=== PATIENT | male | born 1960 | race African-American/Black ===

== ENCOUNTER 2022-04-05 16:50 | Inpatient (IN) | payer OTHER ==
[2022-04-05 17:21] LABS: #Eosinphils 0.2 thou/uL (0.0-0.7); #Lymphocytes 0.5 thou/uL (1.20-3.40); #Monocytes 0.5 thou/uL (0.11-0.59); #Neutrophils 2.5 thou/uL (1.40-6.50); %Basophils 0.4 % (0.0-1.0); %Eosinophils 6.1 % (0.0-10.0); %Lymphocytes 12.5 % (21.0-51.0); %Monocytes 12.4 % (0.0-10.0); %Neutrophils 68.5 % (42.0-75.0); Hemoglobin 13.9 g/dL (14.0-18.0); Mean Corpuscular HGB CONC 32.2 g/dL (32.0-36.0); Mean Corpuscular Volume 99.5 fL (78.0-98.0); Mean Platelet Volume 7.7 fL (7.4-10.4); Platelet Count 156 thou/uL (130-400); RBC Distribution Width 12.8 % (11.5-14.5); Red Blood Cell (RBC) Count 4.35 mill/uL (4.70-6.10); White Blood Cell (WBC) Count 3.6 thou/uL (4.8-10.8)
[2022-04-05 17:29] LABS: PTT 34.5 sec (22.9-36.1); Prothrombin Time 13.7 sec (12.0-14.7)
[2022-04-05 18:00] LABS: ALT (SGPT) 13 U/L (8-55); AST (SGOT) 20 U/L (5-34); Albumin 3.8 g/dL (3.5-5.0); Alcohol 49 mg/dL (Less than 10); Alkaline Phosphatase 51 U/L (40-110); Anion Gap 17 mmol/L (10-20); BUN (Urea Nitrogen) 11 mg/dL (8.4-25.7); Bilirubin, Total 1.1 mg/dL (0.2-1.2); CK (CPK) 70 U/L (30-200); Calc. Creatinine Clearance 0 mL/min (70-130); Carbon Dioxide 25 mmol/L (22-29); Chloride 95 mmol/L (98-107); Estimated GFR 104; Potassium 3.7 mmol/L (3.5-5.1); Protein, Total 6.8 g/dL (6.0-8.3); Sodium 133 mmol/L (136-145)
[2022-04-05 18:12] LABS: Glucose 58 mg/dL (70-105)
[2022-04-05 19:19] LABS: Bacteria/HPF None Seen HPF (None Seen); Bilirubin Negative (Negative); Blood, Urine Negative (Negative); Clarity Clear (Clear); Glucose, Urine (Dipstick) Normal (Negative); Ketone, Urine 10 mg/dL (Negative); Leukocyte Negative Leu/uL (Negative); Nitrite Negative (Negative); Protein, Urine (Dipstick) 30 mg/dL (Neg-Trace); RBC/HPF 0-3 HPF (0-3); Squamous Epithelial 0-3 HPF (0-3); WBC/HPF 0-3 HPF (0-3); pH, Urine 5.5 (5.0-9.0)
[2022-04-05 19:20] LABS: Specific Gravity, Urine Greater than 1.060 (1.002-1.036)
[2022-04-05 19:23] LABS: Amphetamine Not Detected (NotDetected); Barbiturates Screen Not Detected (NotDetected); Benzodiazepine Screen Not Detected (NotDetected); Cocaine Metabolite Screen Detected (NotDetected); Methadone Not Detected (NotDetected); Methamphetamine Not Detected (NotDetected); Opiate Screen Not Detected (NotDetected); Oxycodone Screen Not Detected (NotDetected); Phencyclidine (PCP) Not Detected (NotDetected); THC/Cannabinoid Screen Not Detected (NotDetected); Tricyclic Screen Not Detected (NotDetected)
[2022-04-05] MEDS: Nicotine 21 MG PATCH TD SCH (22:35)
[2022-04-05] MEDS: Dextrose 5 %-0.45 % NaCl 1,000 ML IV SCH (22:35)
[2022-04-06 04:46] LABS: #Eosinphils 0.2 thou/uL (0.0-0.7); #Lymphocytes 0.4 thou/uL (1.20-3.40); #Monocytes 0.4 thou/uL (0.11-0.59); #Neutrophils 1.6 thou/uL (1.40-6.50); %Eosinophils 8.5 % (0.0-10.0); %Lymphocytes 15.5 % (21.0-51.0); %Monocytes 14.4 % (0.0-10.0); %Neutrophils 61.7 % (42.0-75.0); Hemoglobin 14.3 g/dL (14.0-18.0); Mean Corpuscular HGB CONC 32.1 g/dL (32.0-36.0); Mean Corpuscular Hemoglobin 32.1 pg (27.0-31.0); Mean Corpuscular Volume 99.8 fL (78.0-98.0); Mean Platelet Volume 7.4 fL (7.4-10.4); Platelet Count 139 thou/uL (130-400); RBC Distribution Width 12.7 % (11.5-14.5); Red Blood Cell (RBC) Count 4.46 mill/uL (4.70-6.10); White Blood Cell (WBC) Count 2.6 thou/uL (4.8-10.8)
[2022-04-06 05:31] LABS: Cardiac Risk 2.2 (Less than 4.5)
[2022-04-06 05:40] LABS: ALT (SGPT) 13 U/L (8-55); AST (SGOT) 20 U/L (5-34); Albumin 3.5 g/dL (3.5-5.0); Alkaline Phosphatase 47 U/L (40-110); Anion Gap 14 mmol/L (10-20); BUN (Urea Nitrogen) 10 mg/dL (8.4-25.7); Bilirubin, Total 1.1 mg/dL (0.2-1.2); Calc. Creatinine Clearance 80 mL/min (70-130); Calcium 8.5 mg/dL (7.8-10.44); Carbon Dioxide 24 mmol/L (22-29); Chloride 99 mmol/L (98-107); Estimated GFR 104; Globulin 2.8 g/dL (2.4-3.5); Glucose 87 mg/dL (70-105); Potassium 3.4 mmol/L (3.5-5.1); Protein, Total 6.3 g/dL (6.0-8.3); Sodium 134 mmol/L (136-145)
[2022-04-06] MEDS: Dextrose 5 %-0.45 % NaCl 1,000 ML IV SCH ×2 (10:18→20:40)
[2022-04-06] MEDS: Aspirin 81 mg Enteric Coated Tablet PO SCH (12:18)
[2022-04-06] MEDS: Levothyroxine Sodium 50 MCG TAB PO SCH (12:18)
[2022-04-06] MEDS: Nicotine 21 MG PATCH TD SCH (20:38)
[2022-04-06] MEDS: Atorvastatin Calcium 40 MG TAB PO SCH (20:38)
[2022-04-07 05:29] LABS: Free T4 (Free Thyroxine) 0.76 ng/dL (0.70-1.48); Thyroid Stimulating Hormone 13.779 uIU/mL (0.35-4.94)
[2022-04-07] MEDS: Dextrose 5 %-0.45 % NaCl 1,000 ML IV SCH (05:55)
[2022-04-07] MEDS ORDERED: Dextrose 5 %-0.45 % NaCl 1,000 ML IV SCH (06:38)
[2022-04-07] MEDS: Levothyroxine Sodium 50 MCG TAB PO SCH (08:19)
[2022-04-07] MEDS ORDERED: PROPOFOL 200 MG/20 ML VIAL ONE (09:29)
[2022-04-07] MEDS ORDERED: Lidocaine 1% PF 5 ML VIAL ONE (09:29)
[2022-04-07] MEDS: Aspirin 81 mg Enteric Coated Tablet PO SCH (10:32)
[2022-04-07] MEDS ORDERED: Magnevist 469MG/ML 20 ML VIAL ONE (14:06)
[2022-04-07 14:19] LABS: HBCM Index 0.09 S/CO (0-0.79); HBSAg Index 0.27 S/CO (0-0.99); HIV (1/2) Antibody/Antigen Non-Reactive (NonReactive); HIV 1/2 INDEX 0.15 S/CO (<1.00); Hep A IgM AB Non-Reactive (NonReactive); Hep B Surf Ag Non-Reactive S/CO (NonReactive); Hepatitis B Core IgM Abs Non-Reactive (NonReactive)
[2022-04-07 14:23] LABS: Hep C IgG Ab Reflex HepC Qnt (NonReactive); Hep C Index 2.79 S/CO (0-0.79)
[2022-04-07] MEDS: Atorvastatin Calcium 40 MG TAB PO SCH (19:56)
[2022-04-07] MEDS: Nicotine 21 MG PATCH TD SCH (19:57)
[2022-04-08] MEDS ORDERED: Cyclobenzaprine 10 MG TAB PO SCH (01:15)
[2022-04-08 05:15] LABS: #Eosinphils 0.3 thou/uL (0.0-0.7); #Lymphocytes 0.3 thou/uL (1.20-3.40); #Monocytes 0.4 thou/uL (0.11-0.59); #Neutrophils 2.8 thou/uL (1.40-6.50); %Basophils 0.6 % (0.0-1.0); %Eosinophils 7.3 % (0.0-10.0); %Lymphocytes 8.4 % (21.0-51.0); %Monocytes 10.3 % (0.0-10.0); %Neutrophils 73.4 % (42.0-75.0); Hemoglobin 13.4 g/dL (14.0-18.0); Mean Corpuscular HGB CONC 31.3 g/dL (32.0-36.0); Mean Platelet Volume 8.1 fL (7.4-10.4); Platelet Count 139 thou/uL (130-400); RBC Distribution Width 12.8 % (11.5-14.5); Red Blood Cell (RBC) Count 4.19 mill/uL (4.70-6.10); White Blood Cell (WBC) Count 3.8 thou/uL (4.8-10.8)
[2022-04-08 05:35] LABS: Anion Gap 13 mmol/L (10-20); BUN (Urea Nitrogen) 4 mg/dL (8.4-25.7); Calc. Creatinine Clearance 89 mL/min (70-130); Calcium 8.6 mg/dL (7.8-10.44); Carbon Dioxide 25 mmol/L (22-29); Chloride 102 mmol/L (98-107); Estimated GFR 107; Glucose 102 mg/dL (70-105); Sodium 136 mmol/L (136-145)
[2022-04-08] MEDS: Aspirin 81 mg Enteric Coated Tablet PO SCH (08:45)
[2022-04-08] MEDS: Levothyroxine Sodium 50 MCG TAB PO SCH (08:45)
[2022-04-08] MEDS: Fluconazole 100 MG TAB PO SCH (08:45)
[2022-04-08] MEDS ORDERED: methylPREDNISolone Sod Succ 40 MG VIAL IVP SCH ×2 (09:45→18:00)
[2022-04-08] MEDS: Acetaminophen 325 MG TAB PO PRN ×2 (14:53→20:01)
[2022-04-08] MEDS: Atorvastatin Calcium 40 MG TAB PO SCH (20:01)
[2022-04-09] MEDS: Mometasone 200 MCG/Formoterol 5 MCG 120 PUFF INHALER INH SCH ×2 (07:04→18:49)
[2022-04-09] MEDS ORDERED: Thrombin 5000 UNITS/5 ML VIAL ONE (07:35)
[2022-04-09] MEDS ORDERED: Midazolam HCl 2 mg/2 ml Vial ONE (07:57)
[2022-04-09] MEDS ORDERED: fentaNYL Citrate/PF 100 MCG/2 ML SYRINGE ONE (07:58)
[2022-04-09] MEDS ORDERED: Sodium Chloride 0.9% 100 ML ONE (08:31)
[2022-04-09] MEDS ORDERED: CEFAZOLIN 2 GM VIAL ONE (08:31)
[2022-04-09] MEDS ORDERED: Lidocaine 1% PF 5 ML VIAL ONE (08:44)
[2022-04-09] MEDS ORDERED: Ondansetron PF 4 MG/2 ML Vial ONE (08:44)
[2022-04-09] MEDS ORDERED: PROPOFOL 200 MG/20 ML VIAL ONE (08:44)
[2022-04-09] MEDS ORDERED: Rocuronium Bromide 10 MG/ML (10ML VIAL) ONE (08:44)
[2022-04-09] MEDS ORDERED: SUGAMMADEX SODIUM 200 MG/2 ML VIAL ONE (10:25)
[2022-04-09] MEDS: Levothyroxine Sodium 50 MCG TAB PO SCH (10:38)
[2022-04-09] MEDS ORDERED: Acetaminophen/Codeine 30-300mg Tablet PO PRN (10:52)
[2022-04-09] MEDS ORDERED: ceFAZolin 2 GM/Dextrose 50 ML 2 GM in Premix Bag 1 BAG IVPB SCH (11:00)
[2022-04-09] MEDS ORDERED: Promethazine HCl 25 MG/ML VIAL IVPB PRN (11:03)
[2022-04-09] MEDS ORDERED: Promethazine HCl 25 MG/ML VIAL IM PRN (11:03)
[2022-04-09] MEDS ORDERED: Ondansetron HCl/PF 4 MG/2 ML Vial IVP PRN (11:03)
[2022-04-09] MEDS ORDERED: Fentanyl 100 MCG/2 ML VIAL ONE ×2 (11:04→11:24)
[2022-04-09] MEDS ORDERED: Chloraseptic Spray 180 ml Bottle PO PRN (12:12)
[2022-04-09] MEDS: Aspirin 81 mg Enteric Coated Tablet PO SCH (12:20)
[2022-04-09] MEDS: Fluconazole 100 MG TAB PO SCH (12:20)
[2022-04-09] MEDS: Nystatin 500,000 UNITS/5 ML UDCUP SSW SCH ×3 (12:41→21:40)
[2022-04-09] MEDS: Morphine 2 MG/ML VIAL SLOW IVP PRN ×3 (12:41→23:31)
[2022-04-09] MEDS: Sodium Chloride 0.9% 1,000 ML IV SCH (12:42)
[2022-04-09] MEDS: HYDROcodone/Acetaminophen 7.5/325 mg Tablet PO PRN ×2 (16:17→21:40)
[2022-04-09] MEDS: CEFAZOLIN 2 GM in Sodium Chloride 0.9% 100 ML IVPB SCH ×2 (16:17→23:31)
[2022-04-09] MEDS ORDERED: ALPRAZolam 0.25 MG TAB PO SCH (17:45)
[2022-04-09] MEDS: Ondansetron PF 4 MG/2 ML Vial IVP PRN (19:26)
[2022-04-09] MEDS: Atorvastatin Calcium 40 MG TAB PO SCH (21:41)
[2022-04-09] MEDS ORDERED: Promethazine HCl 6.25 MG in Sodium Chloride 0.9% 50 ML IVPB SCH (22:45)
[2022-04-10] MEDS: Morphine 2 MG/ML VIAL SLOW IVP PRN (02:13)
[2022-04-10] MEDS: Sodium Chloride 0.9% 1,000 ML IV SCH ×2 (02:13→14:11)
[2022-04-10 05:56] LABS: #Eosinphils 0.3 thou/uL (0.0-0.7); #Lymphocytes 0.4 thou/uL (1.20-3.40); #Monocytes 0.6 thou/uL (0.11-0.59); #Neutrophils 4.5 thou/uL (1.40-6.50); %Basophils 0.6 % (0.0-1.0); %Eosinophils 5.8 % (0.0-10.0); %Lymphocytes 7.4 % (21.0-51.0); %Monocytes 9.4 % (0.0-10.0); %Neutrophils 76.8 % (42.0-75.0); Hemoglobin 14.1 g/dL (14.0-18.0); Mean Corpuscular HGB CONC 31.2 g/dL (32.0-36.0); Mean Corpuscular Hemoglobin 32.2 pg (27.0-31.0); Mean Platelet Volume 8.7 fL (7.4-10.4); Platelet Count 144 thou/uL (130-400); RBC Distribution Width 12.6 % (11.5-14.5); Red Blood Cell (RBC) Count 4.37 mill/uL (4.70-6.10); White Blood Cell (WBC) Count 5.8 thou/uL (4.8-10.8)
[2022-04-10 06:15] LABS: Anion Gap 14 mmol/L (10-20); BUN (Urea Nitrogen) Less than 4 mg/dL (8.4-25.7); Calc. Creatinine Clearance 83 mL/min (70-130); Calcium 8.8 mg/dL (7.8-10.44); Carbon Dioxide 26 mmol/L (22-29); Chloride 99 mmol/L (98-107); Estimated GFR 105; Glucose 71 mg/dL (70-105); Potassium 4.2 mmol/L (3.5-5.1); Sodium 135 mmol/L (136-145)
[2022-04-10] MEDS: Mometasone 200 MCG/Formoterol 5 MCG 120 PUFF INHALER INH SCH ×2 (07:24→19:07)
[2022-04-10] MEDS: Fluconazole 100 MG TAB PO SCH (10:09)
[2022-04-10] MEDS: Levothyroxine Sodium 50 MCG TAB PO SCH (10:09)
[2022-04-10] MEDS: HYDROcodone/Acetaminophen 7.5/325 mg Tablet PO PRN ×2 (10:09→21:02)
[2022-04-10] MEDS: Nystatin 500,000 UNITS/5 ML UDCUP SSW SCH ×4 (10:09→21:02)
[2022-04-10] MEDS: CEFAZOLIN 2 GM in Sodium Chloride 0.9% 100 ML IVPB SCH ×2 (10:23→17:12)
[2022-04-10 11:37] LABS: Hep C PCR-Quant HCV Not Detected IU/mL (.)
[2022-04-10] MEDS: Atorvastatin Calcium 40 MG TAB PO SCH (21:02)
[2022-04-11 00:36] LABS: QuantiFERON-TB Gold Plus Negative (Negative)
[2022-04-11] MEDS: CEFAZOLIN 2 GM in Sodium Chloride 0.9% 100 ML IVPB SCH ×4 (00:56→23:11)
[2022-04-11] MEDS: Sodium Chloride 0.9% 1,000 ML IV SCH ×2 (04:09→17:24)
[2022-04-11] MEDS: Morphine 2 MG/ML VIAL SLOW IVP PRN (04:35)
[2022-04-11] MEDS: Mometasone 200 MCG/Formoterol 5 MCG 120 PUFF INHALER INH SCH ×2 (07:59→18:55)
[2022-04-11] MEDS: Fluconazole 100 MG TAB PO SCH (09:02)
[2022-04-11] MEDS: Levothyroxine Sodium 50 MCG TAB PO SCH (09:02)
[2022-04-11] MEDS: Nystatin 500,000 UNITS/5 ML UDCUP SSW SCH ×4 (09:02→20:25)
[2022-04-11] MEDS: Scopolamine 1.5 mg/72 hour Patch TD SCH (12:14)
[2022-04-11] MEDS: Atorvastatin Calcium 40 MG TAB PO SCH (20:26)
[2022-04-11] MEDS: HYDROcodone/Acetaminophen 7.5/325 mg Tablet PO PRN (20:28)
[2022-04-12] MEDS: Sodium Chloride 0.9% 1,000 ML IV SCH ×2 (05:18→20:56)
[2022-04-12 06:51] LABS: Anion Gap 13 mmol/L (10-20); BUN (Urea Nitrogen) 7 mg/dL (8.4-25.7); Calc. Creatinine Clearance 92 mL/min (70-130); Calcium 9.2 mg/dL (7.8-10.44); Carbon Dioxide 29 mmol/L (22-29); Chloride 97 mmol/L (98-107); Estimated GFR 108; Glucose 94 mg/dL (70-105); Potassium 4.3 mmol/L (3.5-5.1); Sodium 135 mmol/L (136-145)
[2022-04-12] MEDS: Mometasone 200 MCG/Formoterol 5 MCG 120 PUFF INHALER INH SCH ×2 (07:17→19:07)
[2022-04-12 07:18] LABS: #Eosinphils 0.3 thou/uL (0.0-0.7); #Lymphocytes 0.4 thou/uL (1.20-3.40); #Monocytes 0.5 thou/uL (0.11-0.59); #Neutrophils 2.7 thou/uL (1.40-6.50); %Basophils 0.6 % (0.0-1.0); %Eosinophils 6.9 % (0.0-10.0); %Monocytes 13.3 % (0.0-10.0); %Neutrophils 69.3 % (42.0-75.0); Hemoglobin 13.9 g/dL (14.0-18.0); Mean Corpuscular HGB CONC 31.6 g/dL (32.0-36.0); Mean Corpuscular Hemoglobin 32.4 pg (27.0-31.0); Mean Platelet Volume 8.6 fL (7.4-10.4); Platelet Count 139 thou/uL (130-400); RBC Distribution Width 12.6 % (11.5-14.5); Red Blood Cell (RBC) Count 4.29 mill/uL (4.70-6.10); White Blood Cell (WBC) Count 3.9 thou/uL (4.8-10.8)
[2022-04-12] MEDS: Ondansetron PF 4 MG/2 ML Vial IVP PRN (08:59)
[2022-04-12] MEDS: Nystatin 500,000 UNITS/5 ML UDCUP SSW SCH ×4 (09:00→20:55)
[2022-04-12] MEDS: Fluconazole 100 MG TAB PO SCH (09:00)
[2022-04-12] MEDS: Levothyroxine Sodium 50 MCG TAB PO SCH (09:00)
[2022-04-12] MEDS: CEFAZOLIN 2 GM in Sodium Chloride 0.9% 100 ML IVPB SCH (09:03)
[2022-04-12] MEDS: HYDROcodone/Acetaminophen 7.5/325 mg Tablet PO PRN ×2 (09:59→20:55)
[2022-04-12] MEDS: Atorvastatin Calcium 40 MG TAB PO SCH (20:54)
[2022-04-13] MEDS: Mometasone 200 MCG/Formoterol 5 MCG 120 PUFF INHALER INH SCH ×2 (07:09→18:24)
[2022-04-13] MEDS: Levothyroxine Sodium 50 MCG TAB PO SCH (08:59)
[2022-04-13] MEDS: Fluconazole 100 MG TAB PO SCH (08:59)
[2022-04-13] MEDS: Nystatin 500,000 UNITS/5 ML UDCUP SSW SCH ×4 (08:59→20:25)
[2022-04-13] MEDS: HYDROcodone/Acetaminophen 7.5/325 mg Tablet PO PRN ×2 (09:17→20:24)
[2022-04-13] MEDS ORDERED: methylPREDNISolone Sod Succ 40 MG VIAL IVP SCH (10:00)
[2022-04-13] MEDS: traMADol HCl 50 MG TAB PO PRN (11:14)
[2022-04-13] MEDS ORDERED: methylPREDNISolone Sod Succ 40 MG VIAL ONE (11:19)
[2022-04-13] MEDS ORDERED: Scopolamine 1.5 mg/72 hour Patch TD SCH (11:45)
[2022-04-13] MEDS ORDERED: hydrALAZINE 20 MG/ML VIAL SLOW IVP SCH (12:30)
[2022-04-13] MEDS: Sodium Chloride 0.9% 1,000 ML IV SCH ×2 (17:40→21:09)
[2022-04-13] MEDS: Atorvastatin Calcium 40 MG TAB PO SCH (20:24)
[2022-04-14] MEDS: hydrALAZINE 20 MG/ML VIAL SLOW IVP PRN ×2 (03:50→13:33)
[2022-04-14] MEDS ORDERED: methylPREDNISolone Sod Succ/PF 125 MG/2 ML VIAL IVP SCH (04:05)
[2022-04-14] MEDS: Morphine 2 MG/ML VIAL SLOW IVP PRN ×2 (04:21→10:46)
[2022-04-14 04:25] LABS: Actual Bicarbonate (HCO3a) 30.5 mEq/L (22-28); Base Excess (BEa) 3.9 mEq/L (-2.0 to +3.0); CO2 Tension 52.9 mmHg (35.0-45.0); Calcium, Ionized (arterial) 1.21 mmol/L (1.12-1.30); Carboxyhemoglobin (COHb) 1.2 gm% (0.0-3.0); O2 Tension (PaO2), arterial 73.8 mmHg (80.0-100.0); Potassium - ABG Lab 3.99 mmol/L (3.70-5.30); pH, Arterial 7.38 (7.35-7.45)
[2022-04-14 04:28] LABS: Puncture Site RRA
[2022-04-14 04:29] LABS: ALV-art Gradient 73.975 mmHg (0-20)
[2022-04-14] MEDS ORDERED: Mag-Al 1200 mg/1200 mg/30 ML UDCUP PO SCH (04:30)
[2022-04-14 05:58] LABS: Troponin I Less than 0.010 ng/mL (< 0.028)
[2022-04-14] MEDS ORDERED: Furosemide 40 MG/4 ML VIAL ONE (06:42)
[2022-04-14] MEDS: Mometasone 200 MCG/Formoterol 5 MCG 120 PUFF INHALER INH SCH ×2 (06:47→18:40)
[2022-04-14 07:09] LABS: Actual Bicarbonate (HCO3a) 28.7 mEq/L (22-28); Base Excess (BEa) 2.1 mEq/L (-2.0 to +3.0); CO2 Tension 51.5 mmHg (35.0-45.0); Calcium, Ionized (arterial) 1.23 mmol/L (1.12-1.30); Carboxyhemoglobin (COHb) 1.1 gm% (0.0-3.0); Hemoglobin (Hb) 16.7 g/dL (14.0-18.0); O2 Tension (PaO2), arterial 61.6 mmHg (80.0-100.0); Potassium - ABG Lab 3.87 mmol/L (3.70-5.30); pH, Arterial 7.36 (7.35-7.45)
[2022-04-14 07:10] LABS: ALV-art Gradient 130.705 mmHg (0-20); Puncture Site RRA
[2022-04-14 07:18] LABS: #Lymphocytes 0.2 thou/uL (1.20-3.40); #Monocytes 0.2 thou/uL (0.11-0.59); #Neutrophils 5.6 thou/uL (1.40-6.50); %Eosinophils 0.3 % (0.0-10.0); %Monocytes 3.8 % (0.0-10.0); %Neutrophils 91.9 % (42.0-75.0); Mean Corpuscular HGB CONC 32.1 g/dL (32.0-36.0); Mean Corpuscular Volume 99.5 fL (78.0-98.0); Platelet Count 292 thou/uL (130-400); Red Blood Cell (RBC) Count 5.33 mill/uL (4.70-6.10); White Blood Cell (WBC) Count 6.1 thou/uL (4.8-10.8)
[2022-04-14 07:34] LABS: Troponin I 0.016 ng/mL (< 0.028)
[2022-04-14 08:09] LABS: Anion Gap 21 mmol/L (10-20); BUN (Urea Nitrogen) 8 mg/dL (8.4-25.7); Calc. Creatinine Clearance 92 mL/min (70-130); Calcium 9.8 mg/dL (7.8-10.44); Carbon Dioxide 18 mmol/L (22-29); Chloride 95 mmol/L (98-107); Estimated GFR 108; Glucose 114 mg/dL (70-105); Potassium 4.8 mmol/L (3.5-5.1); Sodium 129 mmol/L (136-145)
[2022-04-14] MEDS ORDERED: Dexamethasone 10 MG in Sodium Chloride 0.9% 50 ML IVPB SCH (09:15)
[2022-04-14] MEDS ORDERED: Racepinephrine 2.25% 0.5 ML NEB NEB SCH (09:30)
[2022-04-14] MEDS ORDERED: Dexamethasone 10 MG/ML VIAL SLOW IVP SCH (09:30)
[2022-04-14] MEDS: Scopolamine 1.5 mg/72 hour Patch TD SCH (10:48)
[2022-04-14] MEDS: Nystatin 500,000 UNITS/5 ML UDCUP SSW SCH ×4 (11:24→21:25)
[2022-04-14] MEDS: guaiFENesin ER 600 MG TAB PO SCH ×2 (11:24→21:25)
[2022-04-14] MEDS: cefTRIAXone\\ROCEPHIN 2 GM in Sodium Chloride 0.9% 100 ML IVPB SCH (11:41)
[2022-04-14] MEDS: Sodium Chloride 0.9% 1,000 ML IV SCH (11:41)
[2022-04-14] MEDS: Levothyroxine Sodium 50 MCG TAB PO SCH (11:56)
[2022-04-14] MEDS ORDERED: methylPREDNISolone Sod Succ 40 MG VIAL IVP SCH (12:00)
[2022-04-14] MEDS ORDERED: Iopamidol-370 76% 500 ML 1 ML ONE (12:52)
[2022-04-14] MEDS: Fluconazole In NaCl,Iso-Osm 200 MG in Premix Bag 1 BAG IVPB SCH (13:33)
[2022-04-14] MEDS: Fluconazole 100 MG TAB PO SCH (13:34)
[2022-04-14] MEDS: Dexamethasone 4 mg/ml Vial SLOW IVP SCH ×2 (15:16→21:24)
[2022-04-14] MEDS: Pantoprazole 40 MG VIAL IVP SCH (21:24)
[2022-04-14] MEDS: Atorvastatin Calcium 40 MG TAB PO SCH (21:24)
[2022-04-15] MEDS: Sodium Chloride 0.9% 1,000 ML IV SCH (00:10)
[2022-04-15 04:14] LABS: #Lymphocytes 0.2 thou/uL (1.20-3.40); #Monocytes 0.3 thou/uL (0.11-0.59); #Neutrophils 8.4 thou/uL (1.40-6.50); %Eosinophils 0.1 % (0.0-10.0); %Lymphocytes 2.6 % (21.0-51.0); %Neutrophils 94.3 % (42.0-75.0); Hemoglobin 14.9 g/dL (14.0-18.0); Mean Corpuscular HGB CONC 31.9 g/dL (32.0-36.0); Mean Corpuscular Hemoglobin 32.8 pg (27.0-31.0); Mean Platelet Volume 8.1 fL (7.4-10.4); Platelet Count 199 thou/uL (130-400); RBC Distribution Width 12.3 % (11.5-14.5); Red Blood Cell (RBC) Count 4.53 mill/uL (4.70-6.10); White Blood Cell (WBC) Count 8.9 thou/uL (4.8-10.8)
[2022-04-15 04:29] LABS: Anion Gap 14 mmol/L (10-20); BUN (Urea Nitrogen) 12 mg/dL (8.4-25.7); Calc. Creatinine Clearance 83 mL/min (70-130); Calcium 9.5 mg/dL (7.8-10.44); Carbon Dioxide 32 mmol/L (22-29); Chloride 93 mmol/L (98-107); Estimated GFR 105; Glucose 97 mg/dL (70-105); Potassium 4.3 mmol/L (3.5-5.1); Sodium 135 mmol/L (136-145)
[2022-04-15] MEDS: Dexamethasone 4 mg/ml Vial SLOW IVP SCH ×3 (05:26→22:23)
[2022-04-15] MEDS ORDERED: Levothyroxine 100 MCG SDV SLOW IVP SCH (06:00)
[2022-04-15] MEDS: Mometasone 200 MCG/Formoterol 5 MCG 120 PUFF INHALER INH SCH ×2 (06:53→19:36)
[2022-04-15] MEDS: guaiFENesin ER 600 MG TAB PO SCH ×2 (08:24→22:22)
[2022-04-15] MEDS: Nystatin 500,000 UNITS/5 ML UDCUP SSW SCH ×4 (08:24→22:20)
[2022-04-15] MEDS ORDERED: Dextrose 5%-Lactated Ringers 1,000 ML IV SCH (09:00)
[2022-04-15] MEDS: Pantoprazole 40 MG VIAL IVP SCH ×2 (09:08→22:21)
[2022-04-15] MEDS: Nicotine 14 MG PATCH TD SCH (10:25)
[2022-04-15] MEDS: cefTRIAXone\\ROCEPHIN 2 GM in Sodium Chloride 0.9% 100 ML IVPB SCH (10:25)
[2022-04-15] MEDS ORDERED: Haloperidol Lactate 5 MG/ML VIAL SLOW IVP PRN (13:22)
[2022-04-15] MEDS: Fluconazole In NaCl,Iso-Osm 200 MG in Premix Bag 1 BAG IVPB SCH (13:45)
[2022-04-15] MEDS ORDERED: Levothyroxine Sodium 50 MCG TAB PO SCH (18:30)
[2022-04-15] MEDS: Ondansetron PF 4 MG/2 ML Vial IVP PRN (20:31)
[2022-04-15] MEDS: Atorvastatin Calcium 40 MG TAB PO SCH (22:21)
[2022-04-16] MEDS: Ondansetron PF 4 MG/2 ML Vial IVP PRN (04:05)
[2022-04-16] MEDS: Dexamethasone 4 mg/ml Vial SLOW IVP SCH (05:08)
[2022-04-16] MEDS: Levothyroxine Sodium 50 MCG TAB PO SCH (05:08)
[2022-04-16] MEDS: Mometasone 200 MCG/Formoterol 5 MCG 120 PUFF INHALER INH SCH ×2 (06:45→18:59)
[2022-04-16] MEDS ORDERED: Dexamethasone 20 MG/5 ML VIAL SLOW IVP SCH (08:30)
[2022-04-16] MEDS: Nystatin 500,000 UNITS/5 ML UDCUP SSW SCH ×4 (09:25→21:20)
[2022-04-16] MEDS: Dexamethasone 10 MG/ML VIAL FS SCH ×2 (09:25→21:19)
[2022-04-16] MEDS: Nicotine 14 MG PATCH TD SCH (09:25)
[2022-04-16] MEDS: Pantoprazole 40 MG VIAL IVP SCH ×2 (09:25→21:20)
[2022-04-16] MEDS: guaiFENesin ER 600 MG TAB PO SCH ×3 (09:25→22:52)
[2022-04-16] MEDS: cefTRIAXone\\ROCEPHIN 2 GM in Sodium Chloride 0.9% 100 ML IVPB SCH (11:27)
[2022-04-16] MEDS: Fluconazole In NaCl,Iso-Osm 200 MG in Premix Bag 1 BAG IVPB SCH (14:39)
[2022-04-16] MEDS: Atorvastatin Calcium 40 MG TAB PO SCH (21:20)
[2022-04-17] MEDS: HYDROcodone/Acetaminophen 7.5/325 mg Tablet PO PRN ×2 (00:26→12:49)
[2022-04-17] MEDS: Levothyroxine Sodium 50 MCG TAB PO SCH (05:52)
[2022-04-17] MEDS: Mometasone 200 MCG/Formoterol 5 MCG 120 PUFF INHALER INH SCH ×2 (06:39→18:34)
[2022-04-17] MEDS: Pantoprazole 40 MG VIAL IVP SCH ×2 (09:04→20:08)
[2022-04-17] MEDS: Dexamethasone 10 MG/ML VIAL SLOW IVP SCH ×2 (09:04→20:07)
[2022-04-17] MEDS: Nystatin 500,000 UNITS/5 ML UDCUP SSW SCH ×4 (09:05→20:07)
[2022-04-17] MEDS: guaiFENesin ER 600 MG TAB PO SCH (09:05)
[2022-04-17] MEDS: cefTRIAXone\\ROCEPHIN 2 GM in Sodium Chloride 0.9% 100 ML IVPB SCH (12:49)
[2022-04-17] MEDS: Scopolamine 1.5 mg/72 hour Patch TD SCH (16:43)
[2022-04-17] MEDS: Fluconazole In NaCl,Iso-Osm 200 MG in Premix Bag 1 BAG IVPB SCH (17:41)
[2022-04-17] MEDS: Atorvastatin Calcium 40 MG TAB PO SCH (20:08)
[2022-04-17] MEDS: traMADol HCl 50 MG TAB PO PRN (20:13)
[2022-04-18] MEDS: hydrALAZINE 20 MG/ML VIAL SLOW IVP PRN (06:24)
[2022-04-18] MEDS: Levothyroxine Sodium 50 MCG TAB PO SCH (06:29)
[2022-04-18] MEDS: Mometasone 200 MCG/Formoterol 5 MCG 120 PUFF INHALER INH SCH ×2 (07:10→18:49)
[2022-04-18] MEDS: Pantoprazole 40 MG VIAL IVP SCH ×2 (08:24→20:48)
[2022-04-18] MEDS: Nystatin 500,000 UNITS/5 ML UDCUP SSW SCH ×4 (08:24→20:48)
[2022-04-18] MEDS: cefTRIAXone\\ROCEPHIN 2 GM in Sodium Chloride 0.9% 100 ML IVPB SCH (13:49)
[2022-04-18] MEDS: Fluconazole In NaCl,Iso-Osm 200 MG in Premix Bag 1 BAG IVPB SCH (13:49)
[2022-04-18] MEDS: Senokot S 8.6-50 MG TAB PO PRN (17:19)
[2022-04-18] MEDS: traMADol HCl 50 MG TAB PO PRN (20:46)
[2022-04-18] MEDS: Atorvastatin Calcium 40 MG TAB PO SCH (20:46)
[2022-04-19] MEDS: traMADol HCl 50 MG TAB PO PRN ×2 (06:42→20:49)
[2022-04-19] MEDS: Levothyroxine Sodium 50 MCG TAB PO SCH (06:44)
[2022-04-19] MEDS: Mometasone 200 MCG/Formoterol 5 MCG 120 PUFF INHALER INH SCH ×2 (06:51→18:39)
[2022-04-19] MEDS: Pantoprazole 40 MG VIAL IVP SCH ×2 (08:54→20:48)
[2022-04-19] MEDS: Nystatin 500,000 UNITS/5 ML UDCUP SSW SCH ×4 (08:54→20:49)
[2022-04-19] MEDS: HYDROcodone/Acetaminophen 7.5/325 mg Tablet PO PRN (08:58)
[2022-04-19] MEDS: Fluconazole In NaCl,Iso-Osm 200 MG in Premix Bag 1 BAG IVPB SCH (15:14)
[2022-04-19] MEDS: Atorvastatin Calcium 40 MG TAB PO SCH (20:48)
[2022-04-20] MEDS: Mometasone 200 MCG/Formoterol 5 MCG 120 PUFF INHALER INH SCH ×2 (06:07→18:30)
[2022-04-20] MEDS: Levothyroxine Sodium 50 MCG TAB PO SCH (06:31)
[2022-04-20] MEDS: traMADol HCl 50 MG TAB PO PRN ×2 (06:33→21:01)
[2022-04-20] MEDS: Pantoprazole 40 MG VIAL IVP SCH ×2 (07:43→21:02)
[2022-04-20] MEDS: Nystatin 500,000 UNITS/5 ML UDCUP SSW SCH ×4 (07:43→21:02)
[2022-04-20] MEDS: Scopolamine 1.5 mg/72 hour Patch TD SCH (10:43)
[2022-04-20] MEDS: Fluconazole In NaCl,Iso-Osm 200 MG in Premix Bag 1 BAG IVPB SCH (14:29)
[2022-04-20] MEDS ORDERED: methylPREDNISolone Sod Succ/PF 40 MG in Sodium Chloride 0.9% 250 ML 250 ML IVPB SCH (14:45)
[2022-04-20] MEDS: Atorvastatin Calcium 40 MG TAB PO SCH (21:01)
[2022-04-21] MEDS: Levothyroxine Sodium 50 MCG TAB PO SCH (06:03)
[2022-04-21] MEDS: Mometasone 200 MCG/Formoterol 5 MCG 120 PUFF INHALER INH SCH ×2 (06:56→18:45)
[2022-04-21] MEDS: Nystatin 500,000 UNITS/5 ML UDCUP SSW SCH ×4 (08:52→20:05)
[2022-04-21] MEDS: methylPREDNISolone Sod Succ 40 MG VIAL IVP SCH (08:52)
[2022-04-21] MEDS: Pantoprazole 40 MG VIAL IVP SCH ×2 (08:53→20:05)
[2022-04-21] MEDS: traMADol HCl 50 MG TAB PO PRN (09:01)
[2022-04-21] MEDS: Fluconazole In NaCl,Iso-Osm 200 MG in Premix Bag 1 BAG IVPB SCH (13:29)
[2022-04-21] MEDS: HYDROcodone/Acetaminophen 7.5/325 mg Tablet PO PRN (20:04)
[2022-04-21] MEDS: Atorvastatin Calcium 40 MG TAB PO SCH (20:05)
[2022-04-21] MEDS: ALPRAZolam 0.25 MG TAB PO PRN (20:05)
[2022-04-22] MEDS: Levothyroxine Sodium 50 MCG TAB PO SCH (06:10)
[2022-04-22] MEDS: Mometasone 200 MCG/Formoterol 5 MCG 120 PUFF INHALER INH SCH ×2 (07:26→18:56)
[2022-04-22] MEDS: Nystatin 500,000 UNITS/5 ML UDCUP SSW SCH ×4 (08:07→20:16)
[2022-04-22] MEDS: HYDROcodone/Acetaminophen 7.5/325 mg Tablet PO PRN ×2 (08:07→20:11)
[2022-04-22] MEDS: Pantoprazole 40 MG VIAL IVP SCH ×2 (08:08→20:11)
[2022-04-22] MEDS: methylPREDNISolone Sod Succ 40 MG VIAL IVP SCH (08:08)
[2022-04-22] MEDS: Fluconazole In NaCl,Iso-Osm 200 MG in Premix Bag 1 BAG IVPB SCH (13:33)
[2022-04-22] MEDS: Atorvastatin Calcium 40 MG TAB PO SCH (20:10)
[2022-04-22] MEDS: ALPRAZolam 0.25 MG TAB PO PRN (20:11)
[2022-04-22] MEDS: Senokot S 8.6-50 MG TAB PO PRN (20:19)
[2022-04-23] MEDS ORDERED: Bisacodyl 10 MG SUPP PR PRN (01:08)
[2022-04-23] MEDS: Levothyroxine Sodium 50 MCG TAB PO SCH (06:42)
[2022-04-23] MEDS: Mometasone 200 MCG/Formoterol 5 MCG 120 PUFF INHALER INH SCH ×2 (07:04→18:22)
[2022-04-23] MEDS: Pantoprazole 40 MG VIAL IVP SCH ×2 (10:04→21:14)
[2022-04-23] MEDS: Nystatin 500,000 UNITS/5 ML UDCUP SSW SCH ×4 (10:05→21:16)
[2022-04-23] MEDS: HYDROcodone/Acetaminophen 7.5/325 mg Tablet PO PRN ×2 (13:03→21:20)
[2022-04-23] MEDS: Scopolamine 1.5 mg/72 hour Patch TD SCH (13:06)
[2022-04-23] MEDS: ALPRAZolam 0.25 MG TAB PO PRN (21:20)
[2022-04-23] MEDS: Atorvastatin Calcium 40 MG TAB PO SCH (21:20)
[2022-04-23] MEDS ORDERED: Haloperidol Lactate 5 MG/ML VIAL SLOW IVP SCH (23:45)
[2022-04-24] MEDS: Levothyroxine Sodium 50 MCG TAB PO SCH (04:49)
[2022-04-24] MEDS: ALPRAZolam 0.25 MG TAB PO PRN (04:49)
[2022-04-24] MEDS: HYDROcodone/Acetaminophen 7.5/325 mg Tablet PO PRN ×2 (04:49→12:57)
[2022-04-24] MEDS: Mometasone 200 MCG/Formoterol 5 MCG 120 PUFF INHALER INH SCH ×2 (06:48→20:06)
[2022-04-24] MEDS: Pantoprazole 40 MG VIAL IVP SCH ×2 (09:24→22:19)
[2022-04-24] MEDS: Nystatin 500,000 UNITS/5 ML UDCUP SSW SCH ×4 (09:27→22:19)
[2022-04-24] MEDS: Atorvastatin Calcium 40 MG TAB PO SCH (22:18)
[2022-04-25] MEDS: Levothyroxine Sodium 50 MCG TAB PO SCH (06:44)
[2022-04-25] MEDS: HYDROcodone/Acetaminophen 7.5/325 mg Tablet PO PRN ×2 (06:44→21:06)
[2022-04-25] MEDS: Mometasone 200 MCG/Formoterol 5 MCG 120 PUFF INHALER INH SCH ×2 (07:31→20:00)
[2022-04-25 07:47] VITALS: BMI 16.7
[2022-04-25] MEDS: Pantoprazole 40 MG VIAL IVP SCH ×2 (09:57→21:07)
[2022-04-25] MEDS: Nystatin 500,000 UNITS/5 ML UDCUP SSW SCH ×4 (09:57→21:07)
[2022-04-25] MEDS: Morphine 2 MG/ML VIAL SLOW IVP PRN (09:59)
[2022-04-25] MEDS: Atorvastatin Calcium 40 MG TAB PO SCH (21:06)
[2022-04-26] MEDS: HYDROcodone/Acetaminophen 7.5/325 mg Tablet PO PRN ×3 (04:45→22:58)
[2022-04-26] MEDS: Levothyroxine Sodium 50 MCG TAB PO SCH (05:15)
[2022-04-26] MEDS: Pantoprazole 40 MG VIAL IVP SCH ×2 (09:21→23:00)
[2022-04-26] MEDS: Nystatin 500,000 UNITS/5 ML UDCUP SSW SCH ×4 (09:21→22:59)
[2022-04-26] MEDS: Scopolamine 1.5 mg/72 hour Patch TD SCH (09:24)
[2022-04-26] MEDS: Mometasone 200 MCG/Formoterol 5 MCG 120 PUFF INHALER INH SCH ×2 (13:18→19:02)
[2022-04-26] MEDS: Atorvastatin Calcium 40 MG TAB PO SCH (22:58)
[2022-04-27] MEDS: Levothyroxine Sodium 50 MCG TAB PO SCH (04:15)
[2022-04-27] MEDS: HYDROcodone/Acetaminophen 7.5/325 mg Tablet PO PRN ×2 (04:15→12:49)
[2022-04-27] MEDS: Mometasone 200 MCG/Formoterol 5 MCG 120 PUFF INHALER INH SCH (07:25)
[2022-04-27] MEDS: Pantoprazole 40 MG VIAL IVP SCH ×2 (08:51→21:26)
[2022-04-27] MEDS: Nystatin 500,000 UNITS/5 ML UDCUP SSW SCH ×4 (08:52→21:26)
[2022-04-27] MEDS: Atorvastatin Calcium 40 MG TAB PO SCH (21:26)
[2022-04-28] MEDS: Mometasone 200 MCG/Formoterol 5 MCG 120 PUFF INHALER INH SCH ×3 (00:40→18:42)
[2022-04-28] MEDS: Levothyroxine Sodium 50 MCG TAB PO SCH (05:39)
[2022-04-28] MEDS: HYDROcodone/Acetaminophen 7.5/325 mg Tablet PO PRN ×2 (09:12→20:34)
[2022-04-28] MEDS: Pantoprazole 40 MG VIAL IVP SCH ×2 (09:13→20:34)
[2022-04-28] MEDS: Nystatin 500,000 UNITS/5 ML UDCUP SSW SCH ×4 (09:13→20:34)
[2022-04-28] MEDS: Atorvastatin Calcium 40 MG TAB PO SCH (20:33)
[2022-04-29] MEDS: Levothyroxine Sodium 50 MCG TAB PO SCH (05:41)
[2022-04-29] MEDS: Mometasone 200 MCG/Formoterol 5 MCG 120 PUFF INHALER INH SCH ×2 (06:50→18:53)
[2022-04-29] MEDS: Pantoprazole 40 MG VIAL IVP SCH ×2 (08:59→20:46)
[2022-04-29] MEDS: Senokot S 8.6-50 MG TAB PO PRN (09:01)
[2022-04-29] MEDS: Nystatin 500,000 UNITS/5 ML UDCUP SSW SCH ×4 (09:01→20:43)
[2022-04-29] MEDS: Scopolamine 1.5 mg/72 hour Patch TD SCH (14:17)
[2022-04-29] MEDS: HYDROcodone/Acetaminophen 7.5/325 mg Tablet PO PRN (17:54)
[2022-04-29] MEDS: Atorvastatin Calcium 40 MG TAB PO SCH (20:46)
[2022-04-30] MEDS: HYDROcodone/Acetaminophen 7.5/325 mg Tablet PO PRN ×2 (05:06→19:53)
[2022-04-30] MEDS: Levothyroxine Sodium 50 MCG TAB PO SCH (05:07)
[2022-04-30] MEDS: Mometasone 200 MCG/Formoterol 5 MCG 120 PUFF INHALER INH SCH ×2 (06:45→18:56)
[2022-04-30] MEDS: Enoxaparin Sodium 40 MG/0.4 ML SYRINGE SC SCH (08:09)
[2022-04-30] MEDS: Nystatin 500,000 UNITS/5 ML UDCUP SSW SCH ×4 (08:10→19:53)
[2022-04-30] MEDS: Pantoprazole 40 MG VIAL IVP SCH ×2 (08:10→19:53)
[2022-04-30] MEDS: Atorvastatin Calcium 40 MG TAB PO SCH (19:53)
[2022-05-01] MEDS: HYDROcodone/Acetaminophen 7.5/325 mg Tablet PO PRN ×2 (05:43→16:21)
[2022-05-01] MEDS: Levothyroxine Sodium 50 MCG TAB PO SCH (05:43)
[2022-05-01] MEDS: Mometasone 200 MCG/Formoterol 5 MCG 120 PUFF INHALER INH SCH ×2 (06:52→18:47)
[2022-05-01] MEDS: Pantoprazole 40 MG VIAL IVP SCH ×2 (08:28→20:51)
[2022-05-01] MEDS: Enoxaparin Sodium 40 MG/0.4 ML SYRINGE SC SCH (08:28)
[2022-05-01] MEDS: Nystatin 500,000 UNITS/5 ML UDCUP SSW SCH ×4 (08:34→20:55)
[2022-05-01] MEDS: Atorvastatin Calcium 40 MG TAB PO SCH (20:51)
[2022-05-02] MEDS: HYDROcodone/Acetaminophen 7.5/325 mg Tablet PO PRN ×3 (01:55→19:57)
[2022-05-02] MEDS: Levothyroxine Sodium 50 MCG TAB PO SCH (05:47)
[2022-05-02] MEDS: Mometasone 200 MCG/Formoterol 5 MCG 120 PUFF INHALER INH SCH ×2 (06:59→18:28)
[2022-05-02] MEDS: Nystatin 500,000 UNITS/5 ML UDCUP SSW SCH ×4 (07:53→22:42)
[2022-05-02] MEDS: Enoxaparin Sodium 40 MG/0.4 ML SYRINGE SC SCH (07:53)
[2022-05-02] MEDS: Scopolamine 1.5 mg/72 hour Patch TD SCH (11:49)
[2022-05-02] MEDS: Atorvastatin Calcium 40 MG TAB PO SCH (19:58)
[2022-05-03] MEDS: Levothyroxine Sodium 50 MCG TAB PO SCH (04:37)
[2022-05-03] MEDS: HYDROcodone/Acetaminophen 7.5/325 mg Tablet PO PRN ×2 (04:37→16:17)
[2022-05-03] MEDS: Mometasone 200 MCG/Formoterol 5 MCG 120 PUFF INHALER INH SCH ×2 (06:54→19:07)
[2022-05-03] MEDS: Nystatin 500,000 UNITS/5 ML UDCUP SSW SCH ×4 (08:06→21:52)
[2022-05-03] MEDS: Enoxaparin Sodium 40 MG/0.4 ML SYRINGE SC SCH (08:06)
[2022-05-03] MEDS: Atorvastatin Calcium 40 MG TAB PO SCH (21:52)
[2022-05-04] MEDS: HYDROcodone/Acetaminophen 7.5/325 mg Tablet PO PRN ×4 (00:40→23:30)
[2022-05-04] MEDS: Levothyroxine Sodium 50 MCG TAB PO SCH (05:27)
[2022-05-04] MEDS: Mometasone 200 MCG/Formoterol 5 MCG 120 PUFF INHALER INH SCH ×2 (06:22→20:09)
[2022-05-04] MEDS: Nystatin 500,000 UNITS/5 ML UDCUP SSW SCH ×4 (08:35→21:23)
[2022-05-04] MEDS: Enoxaparin Sodium 40 MG/0.4 ML SYRINGE SC SCH (08:36)
[2022-05-04] MEDS: Atorvastatin Calcium 40 MG TAB PO SCH (21:23)
[2022-05-05] MEDS: Levothyroxine Sodium 50 MCG TAB PO SCH (06:23)
[2022-05-05] MEDS: Mometasone 200 MCG/Formoterol 5 MCG 120 PUFF INHALER INH SCH ×2 (06:59→18:22)
[2022-05-05] MEDS ORDERED: fentaNYL Citrate/PF 100 MCG/2 ML SYRINGE ONE (08:39)
[2022-05-05] MEDS ORDERED: Midazolam HCl 2 mg/2 ml Vial ONE (08:39)
[2022-05-05] MEDS ORDERED: Dexmedetomidine 200 MCG/2 ML VIAL ONE (08:40)
[2022-05-05] MEDS ORDERED: Lidocaine 0.5%/Epinephrine 1:200,000 50 ml Vial ONE (09:10)
[2022-05-05] MEDS ORDERED: Bupivacaine PF 0.5% 30 ML VIAL ONE (09:10)
[2022-05-05] MEDS ORDERED: Bupivacaine/Epinephrine 0.25% 30 ML VIAL ONE (09:10)
[2022-05-05] MEDS: Enoxaparin Sodium 40 MG/0.4 ML SYRINGE SC SCH (12:03)
[2022-05-05] MEDS: Scopolamine 1.5 mg/72 hour Patch TD SCH (12:03)
[2022-05-05] MEDS: Nystatin 500,000 UNITS/5 ML UDCUP SSW SCH ×4 (12:03→20:44)
[2022-05-05] MEDS: HYDROcodone/Acetaminophen 7.5/325 mg Tablet PO PRN ×2 (14:07→20:34)
[2022-05-05] MEDS: Atorvastatin Calcium 40 MG TAB PO SCH (20:34)
[2022-05-06] MEDS: Levothyroxine Sodium 50 MCG TAB PO SCH (06:25)
[2022-05-06] MEDS: Mometasone 200 MCG/Formoterol 5 MCG 120 PUFF INHALER INH SCH ×2 (07:13→19:27)
[2022-05-06] MEDS: Enoxaparin Sodium 40 MG/0.4 ML SYRINGE SC SCH (08:27)
[2022-05-06] MEDS: Nystatin 500,000 UNITS/5 ML UDCUP SSW SCH ×4 (08:28→22:25)
[2022-05-06] MEDS: Acetaminophen 325 MG TAB PO PRN (12:30)
[2022-05-06] MEDS: HYDROcodone/Acetaminophen 7.5/325 mg Tablet PO PRN (20:26)
[2022-05-06] MEDS: Atorvastatin Calcium 40 MG TAB PO SCH (20:26)
[2022-05-07] MEDS: HYDROcodone/Acetaminophen 7.5/325 mg Tablet PO PRN (06:18)
[2022-05-07] MEDS: Levothyroxine Sodium 50 MCG TAB PO SCH (06:19)
[2022-05-07] MEDS: Mometasone 200 MCG/Formoterol 5 MCG 120 PUFF INHALER INH SCH ×2 (07:32→19:04)
[2022-05-07] MEDS: Enoxaparin Sodium 40 MG/0.4 ML SYRINGE SC SCH (08:43)
[2022-05-07] MEDS: Nystatin 500,000 UNITS/5 ML UDCUP SSW SCH ×4 (08:43→20:53)
[2022-05-07] MEDS: HYDROcodone/Acetaminophen 5/325 mg Tablet PO PRN (16:22)
[2022-05-07 20:00] VITALS: TEMP 98.7
[2022-05-07] MEDS: Atorvastatin Calcium 40 MG TAB PO SCH (20:53)
[2022-05-08] MEDS: HYDROcodone/Acetaminophen 5/325 mg Tablet PO PRN (05:37)
[2022-05-08] MEDS: Levothyroxine Sodium 50 MCG TAB PO SCH (05:37)
[2022-05-08 07:18] LABS: Anion Gap 14 mmol/L (10-20); BUN (Urea Nitrogen) 12 mg/dL (8.4-25.7); Calc. Creatinine Clearance 95 mL/min (70-130); Calcium 9.6 mg/dL (7.8-10.44); Carbon Dioxide 30 mmol/L (22-29); Chloride 96 mmol/L (98-107); Estimated GFR 112; Glucose 93 mg/dL (70-105); Potassium 3.6 mmol/L (3.5-5.1); Sodium 136 mmol/L (136-145)
[2022-05-08] MEDS: Mometasone 200 MCG/Formoterol 5 MCG 120 PUFF INHALER INH SCH (07:26)
[2022-05-08 08:05] VITALS: BP 119/81
[2022-05-08] MEDS: Enoxaparin Sodium 40 MG/0.4 ML SYRINGE SC SCH (08:38)
[2022-05-08] MEDS: Nystatin 500,000 UNITS/5 ML UDCUP SSW SCH ×2 (08:38→12:46)
[2022-05-08] MEDS: Scopolamine 1.5 mg/72 hour Patch TD SCH (11:15)
== END 2022-05-08 13:35 | disposition home or self-care (01) | DRG 471 ==
LOC: ERS 16:50 → NEURO 18:59 → INTOOBSV 18:59 → OBSVTOIN 04-06 12:24 → IMCU/EMU 04-14 07:46 → CCU 04-14 09:53 → IMCU/EMU 04-16 22:09 → T4-A 04-22 15:20 → 2NO 05-05 01:36 → T4-A 05-05 13:02
PROVIDERS: ADMIT Internal Medicine; ATTEND Internal Medicine
PROC: 0D738ZZ Dilation of Lower Esophagus, Via Natural or Artificial Opening Endoscopic (ICD-10-PCS; 2022-04-07)
PROC: 0D748ZZ Dilation of Esophagogastric Junction, Via Natural or Artificial Opening Endoscopic (ICD-10-PCS; 2022-04-07)
PROC: 0DB58ZX Excision of Esophagus, Via Natural or Artificial Opening Endoscopic, Diagnostic (ICD-10-PCS; 2022-04-07)
PROC: 0RG20A0 Fusion of 2 or more Cervical Vertebral Joints with Interbody Fusion Device, Anterior Approach, Anterior Column, Open Approach (ICD-10-PCS; principal; 2022-04-09)
PROC: 0RT30ZZ Resection of Cervical Vertebral Disc, Open Approach (ICD-10-PCS; 2022-04-09)
PROC: 01N10ZZ Release Cervical Nerve, Open Approach (ICD-10-PCS; 2022-04-09)
PROC: 00NW0ZZ Release Cervical Spinal Cord, Open Approach (ICD-10-PCS; 2022-04-09)
PROC: 5A09357 Assistance with Respiratory Ventilation, Less than 24 Consecutive Hours, Continuous Positive Airway Pressure (ICD-10-PCS; 2022-04-14)
PROC: 0CJS8ZZ Inspection of Larynx, Via Natural or Artificial Opening Endoscopic (ICD-10-PCS; 2022-04-15)
PROC: 05PY03Z Removal of Infusion Device from Upper Vein, Open Approach (ICD-10-PCS; 2022-05-05)
DX: M48.02 Spinal stenosis, cervical region (principal); Z20.822 Contact with and (suspected) exposure to COVID-19; J96.01 Acute respiratory failure with hypoxia; G93.41 Metabolic encephalopathy; B37.81 Candidal esophagitis; G99.2 Myelopathy in diseases classified elsewhere; R47.01 Aphasia; I69.354 Hemiplegia and hemiparesis following cerebral infarction affecting left non-dominant side; Z68.1 Body mass index [BMI] 19.9 or less, adult; K22.0 Achalasia of cardia; E03.9 Hypothyroidism, unspecified; E78.5 Hyperlipidemia, unspecified; I25.10 Atherosclerotic heart disease of native coronary artery without angina pectoris; I10 Essential (primary) hypertension; J43.9 Emphysema, unspecified; J42 Unspecified chronic bronchitis; R29.6 Repeated falls; K21.00 Gastro-esophageal reflux disease with esophagitis, without bleeding; R13.10 Dysphagia, unspecified; M54.12 Radiculopathy, cervical region; F14.10 Cocaine abuse, uncomplicated; F17.210 Nicotine dependence, cigarettes, uncomplicated; R47.89 Other speech disturbances; E16.2 Hypoglycemia, unspecified; R27.0 Ataxia, unspecified; F10.10 Alcohol abuse, uncomplicated; F41.9 Anxiety disorder, unspecified; R63.6 Underweight; J38.4 Edema of larynx; Z78.1 Physical restraint status; Z91.81 History of falling; Z79.890 Hormone replacement therapy; Z79.82 Long term (current) use of aspirin; Z98.890 Other specified postprocedural states; Z71.51 Drug abuse counseling and surveillance of drug abuser
CPT/HCPCS: 36415; 36416; 36600; 70450; 70496; 70498; 70551; 71045; 71275; 72125; 72156; 76000; 80048; 80053; 80061; 80074; 80306; 80307; 81003; 81015; 82805; 83036; 83880; 84439; 84443; 84481; 84484; 85025; 85610; 85730; 86480; 87389; 87522; 88300; 88305; 88312; 93005; 93010; 93306; 93970; 94640; 94660; 94760; 96360; 96361; A9579; C1713; C9113; G0378; J0360; J0690; J0696; J1100; J1450; J1630; J1650; J1940; J2001; J2250; J2270; J2405; J2550; J2704; J2920; J2930; J3010; J3490; J7042; J7050; J7620; L0174; Q9967; S0020; U0003; U0005

== ENCOUNTER 2022-05-14 07:52 | Emergency (ER) | payer OTHER ==
[2022-05-14] MEDS ORDERED: Bacitracin 1 PK ONE (09:45)
== END 2022-05-14 09:56 | disposition home or self-care (01) ==
LOC: ERS 07:52
DX: S09.90XA Unspecified injury of head, initial encounter (principal); J43.9 Emphysema, unspecified; I25.10 Atherosclerotic heart disease of native coronary artery without angina pectoris; E03.9 Hypothyroidism, unspecified; K21.9 Gastro-esophageal reflux disease without esophagitis; E78.5 Hyperlipidemia, unspecified; I10 Essential (primary) hypertension; Z87.891 Personal history of nicotine dependence; W19.XXXA Unspecified fall, initial encounter
CPT/HCPCS: 70450; 72125

== ENCOUNTER 2022-05-27 04:56 | Inpatient (IN) | payer OTHER ==
[2022-05-27] MEDS ORDERED: Morphine 4 MG/ML VIAL ONE (05:38)
[2022-05-27] MEDS ORDERED: Ondansetron PF 4 MG/2 ML Vial ONE (05:38)
[2022-05-27 06:48] LABS: #Eosinphils 0.2 thou/uL (0.0-0.7); #Lymphocytes 0.4 thou/uL (1.20-3.40); #Monocytes 0.5 thou/uL (0.11-0.59); #Neutrophils 2.9 thou/uL (1.40-6.50); %Basophils 0.9 % (0.0-1.0); %Eosinophils 3.9 % (0.0-10.0); %Lymphocytes 9.5 % (21.0-51.0); %Monocytes 12.4 % (0.0-10.0); %Neutrophils 73.4 % (42.0-75.0); Mean Corpuscular HGB CONC 32.8 g/dL (32.0-36.0); Mean Corpuscular Hemoglobin 31.3 pg (27.0-31.0); Mean Corpuscular Volume 95.6 fL (78.0-98.0); Platelet Count 232 thou/uL (130-400); RBC Distribution Width 12.9 % (11.5-14.5); Red Blood Cell (RBC) Count 4.46 mill/uL (4.70-6.10); White Blood Cell (WBC) Count 3.9 thou/uL (4.8-10.8)
[2022-05-27 07:03] LABS: ALT (SGPT) 19 U/L (8-55); AST (SGOT) 31 U/L (5-34); Albumin 4.1 g/dL (3.5-5.0); Alkaline Phosphatase 67 U/L (40-110); Anion Gap 18 mmol/L (10-20); BUN (Urea Nitrogen) 6 mg/dL (8.4-25.7); Bilirubin, Total 1.3 mg/dL (0.2-1.2); Calc. Creatinine Clearance 0 mL/min (70-130); Calcium 9.2 mg/dL (7.8-10.44); Carbon Dioxide 27 mmol/L (22-29); Chloride 91 mmol/L (98-107); Estimated GFR 110; Globulin 2.7 g/dL (2.4-3.5); Potassium 4.2 mmol/L (3.5-5.1); Protein, Total 6.8 g/dL (6.0-8.3); Sodium 132 mmol/L (136-145)
[2022-05-27 07:06] LABS: Glucose 38 mg/dL (70-105)
[2022-05-27] MEDS ORDERED: Dextrose 50% Abboject 50 ML SYRINGE ONE (07:07)
[2022-05-27 08:07] LABS: Bilirubin Negative (Negative); Blood, Urine Negative (Negative); Clarity Clear (Clear); Glucose, Urine (Dipstick) Normal (Negative); Ketone, Urine 20 mg/dL (Negative); Leukocyte Negative Leu/uL (Negative); Nitrite Negative (Negative); Protein, Urine (Dipstick) Negative (Neg-Trace); Specific Gravity, Urine 1.004 (1.002-1.036); Urobilinogen Normal mg/dL (Less than 2)
[2022-05-27] MEDS ORDERED: Iopamidol-370 76% 500 ML 1 ML ONE (09:19)
[2022-05-27] MEDS ORDERED: Ketorolac Tromethamine 30 MG/ML VIAL ONE (09:20)
[2022-05-27] MEDS ORDERED: Acetaminophen 650 MG Suppository PR PRN (09:53)
[2022-05-27] MEDS ORDERED: Acetaminophen 325 MG TAB PO PRN (09:53)
[2022-05-27] MEDS ORDERED: Ondansetron PF 4 MG/2 ML Vial IVP PRN (09:53)
[2022-05-27] MEDS ORDERED: Ondansetron ODT 4 MG TAB PO PRN (09:53)
[2022-05-27 11:17] LABS: Magnesium 1.7 mg/dL (1.6-2.6)
[2022-05-27] MEDS: D5 1/2 NS w/10 mEq KCl 1,000 ML/1,000 ML BAG IV SCH (13:20)
[2022-05-27 14:00] VITALS: BMI 16.0
[2022-05-27] MEDS ORDERED: Dexamethasone 4 mg/ml Vial SLOW IVP SCH (17:45)
[2022-05-27] MEDS ORDERED: Isosorbide Dinitrate 5 MG TAB PO SCH (17:45)
[2022-05-27] MEDS ORDERED: Nitroglycerin 2% Ointment 1 INCH/1 GM Packet TOP SCH (17:45)
[2022-05-27] MEDS ORDERED: Dexamethasone 10 MG/ML VIAL SLOW IVP SCH (18:00)
[2022-05-27] MEDS ORDERED: Vancomycin 1 GM in Premix Bag 1 BAG IVPB SCH (20:00)
[2022-05-27] MEDS: Pantoprazole 40 MG VIAL IVP SCH (22:03)
[2022-05-28] MEDS: D5 1/2 NS w/10 mEq KCl 1,000 ML/1,000 ML BAG IV SCH ×2 (00:54→14:45)
[2022-05-28] MEDS: Albuterol Sulfate 2.5 mg/3 ml Neb NEB PRN (05:25)
[2022-05-28 06:36] LABS: #Lymphocytes 0.4 thou/uL (1.20-3.40); #Monocytes 0.2 thou/uL (0.11-0.59); #Neutrophils 2.9 thou/uL (1.40-6.50); %Basophils 0.4 % (0.0-1.0); %Eosinophils 0.1 % (0.0-10.0); %Neutrophils 81.5 % (42.0-75.0); Hemoglobin 14.2 g/dL (14.0-18.0); Mean Corpuscular HGB CONC 31.8 g/dL (32.0-36.0); Mean Corpuscular Hemoglobin 31.4 pg (27.0-31.0); Mean Corpuscular Volume 98.8 fL (78.0-98.0); Mean Platelet Volume 7.1 fL (7.4-10.4); Platelet Count 205 thou/uL (130-400); RBC Distribution Width 12.9 % (11.5-14.5); Red Blood Cell (RBC) Count 4.53 mill/uL (4.70-6.10); White Blood Cell (WBC) Count 3.5 thou/uL (4.8-10.8)
[2022-05-28 06:57] LABS: Anion Gap 13 mmol/L (10-20); BUN (Urea Nitrogen) 4 mg/dL (8.4-25.7); Calc. Creatinine Clearance 80 mL/min (70-130); Calcium 8.8 mg/dL (7.8-10.44); Carbon Dioxide 30 mmol/L (22-29); Chloride 96 mmol/L (98-107); Estimated GFR 108; Glucose 171 mg/dL (70-105); Potassium 4.2 mmol/L (3.5-5.1); Sodium 135 mmol/L (136-145)
[2022-05-28] MEDS: Pantoprazole 40 MG VIAL IVP SCH ×2 (08:51→21:37)
[2022-05-28] MEDS: Vancomycin HCl 750 MG in Sodium Chloride 0.9% 250 ML 250 ML IVPB SCH ×2 (08:52→21:37)
[2022-05-28] MEDS ORDERED: Dexamethasone 10 MG in Sodium Chloride 0.9% 50 ML IVPB SCH (13:00)
[2022-05-28] MEDS ORDERED: Dexamethasone 10 MG/ML VIAL SLOW IVP SCH (14:15)
[2022-05-28] MEDS: D5W-AA 4.25% with LYTES 1,000 ML IV SCH (18:26)
[2022-05-29] MEDS: Hydrocodone-Acetamin 15 ML UDCUP PO PRN ×3 (00:25→21:40)
[2022-05-29] MEDS: D5W-AA 4.25% with LYTES 1,000 ML IV SCH ×2 (04:48→18:42)
[2022-05-29 06:46] LABS: SARS-CoV-2 NAA Rapid Test Not Detected (NotDetected)
[2022-05-29 06:54] LABS: #Lymphocytes 0.4 thou/uL (1.20-3.40); #Monocytes 0.4 thou/uL (0.11-0.59); #Neutrophils 5.4 thou/uL (1.40-6.50); %Basophils 0.6 % (0.0-1.0); %Eosinophils 0.1 % (0.0-10.0); %Lymphocytes 6.1 % (21.0-51.0); %Monocytes 6.3 % (0.0-10.0); %Neutrophils 86.9 % (42.0-75.0); Hemoglobin 12.5 g/dL (14.0-18.0); Mean Corpuscular HGB CONC 32.2 g/dL (32.0-36.0); Mean Corpuscular Hemoglobin 32.3 pg (27.0-31.0); Mean Platelet Volume 7.2 fL (7.4-10.4); Platelet Count 163 thou/uL (130-400); RBC Distribution Width 13.1 % (11.5-14.5); Red Blood Cell (RBC) Count 3.87 mill/uL (4.70-6.10); White Blood Cell (WBC) Count 6.2 thou/uL (4.8-10.8)
[2022-05-29 07:15] LABS: Vancomycin, Trough 10.4 ug/mL
[2022-05-29 07:16] LABS: Anion Gap 11 mmol/L (10-20); BUN (Urea Nitrogen) 7 mg/dL (8.4-25.7); Calc. Creatinine Clearance 86 mL/min (70-130); Calcium 8.6 mg/dL (7.8-10.44); Carbon Dioxide 31 mmol/L (22-29); Chloride 97 mmol/L (98-107); Estimated GFR 110; Glucose 124 mg/dL (70-105); Potassium 4.4 mmol/L (3.5-5.1); Sodium 135 mmol/L (136-145)
[2022-05-29] MEDS: Vancomycin 1 GM in Premix Bag 1 BAG IVPB SCH ×2 (09:27→21:33)
[2022-05-29] MEDS: Pantoprazole 40 MG VIAL IVP SCH ×2 (09:28→21:33)
[2022-05-30] MEDS: Albuterol Sulfate 2.5 mg/3 ml Neb NEB PRN (04:12)
[2022-05-30] MEDS: D5W-AA 4.25% with LYTES 1,000 ML IV SCH (05:27)
[2022-05-30 06:27] LABS: #Eosinphils 0.1 thou/uL (0.0-0.7); #Lymphocytes 0.3 thou/uL (1.20-3.40); #Monocytes 0.4 thou/uL (0.11-0.59); #Neutrophils 2.4 thou/uL (1.40-6.50); %Basophils 0.8 % (0.0-1.0); %Eosinophils 3.6 % (0.0-10.0); %Lymphocytes 10.4 % (21.0-51.0); %Monocytes 11.7 % (0.0-10.0); %Neutrophils 73.6 % (42.0-75.0); Hemoglobin 12.8 g/dL (14.0-18.0); Mean Corpuscular Hemoglobin 31.4 pg (27.0-31.0); Mean Platelet Volume 7.3 fL (7.4-10.4); Platelet Count 150 thou/uL (130-400); RBC Distribution Width 12.9 % (11.5-14.5); Red Blood Cell (RBC) Count 4.09 mill/uL (4.70-6.10); White Blood Cell (WBC) Count 3.3 thou/uL (4.8-10.8)
[2022-05-30 06:44] LABS: Anion Gap 14 mmol/L (10-20); BUN (Urea Nitrogen) 9 mg/dL (8.4-25.7); Calc. Creatinine Clearance 88 mL/min (70-130); Calcium 8.5 mg/dL (7.8-10.44); Carbon Dioxide 32 mmol/L (22-29); Chloride 96 mmol/L (98-107); Estimated GFR 111; Glucose 107 mg/dL (70-105); Potassium 4.4 mmol/L (3.5-5.1); Sodium 138 mmol/L (136-145)
[2022-05-30] MEDS: Vancomycin 1 GM in Premix Bag 1 BAG IVPB SCH (07:58)
[2022-05-30] MEDS: Pantoprazole 40 MG VIAL IVP SCH (07:58)
[2022-05-30] MEDS ORDERED: ePHEDrine 50 MG/ML VIAL ONE (11:01)
[2022-05-30] MEDS ORDERED: Phenylephrine 10 MG/ML VIAL ONE (11:01)
[2022-05-30] MEDS ORDERED: Esmolol 100 MG/10 ML VIAL ONE (11:01)
[2022-05-30] MEDS ORDERED: Ondansetron HCl/PF 4 MG/2 ML Vial IVP PRN (11:59)
[2022-05-30] MEDS ORDERED: Ondansetron PF 4 MG/2 ML Vial ONE (12:25)
[2022-05-30 13:20] VITALS: TEMP 97.9
[2022-05-30] MEDS ORDERED: D5W-AA 4.25% with LYTES 1,000 ML IV SCH (17:30)
[2022-05-30 21:00] VITALS: BP 114/76
== END 2022-05-30 19:50 | disposition short-term general hospital (02) | DRG 391 ==
LOC: ERS 04:56 → T4-B 09:10 → OBSVTOIN 17:36
PROVIDERS: ADMIT Physician Assistant; ATTEND Physician Assistant
PROC: 4A0B8BZ Measurement of Gastrointestinal Pressure, Via Natural or Artificial Opening Endoscopic (ICD-10-PCS; principal; 2022-05-30)
PROC: 4A1B88Z Monitoring of Gastrointestinal Motility, Via Natural or Artificial Opening Endoscopic (ICD-10-PCS; 2022-05-30)
DX: K22.0 Achalasia of cardia (principal); E43 Unspecified severe protein-calorie malnutrition; Z68.1 Body mass index [BMI] 19.9 or less, adult; R64 Cachexia; E16.2 Hypoglycemia, unspecified; Z20.822 Contact with and (suspected) exposure to COVID-19; J44.9 Chronic obstructive pulmonary disease, unspecified; E03.9 Hypothyroidism, unspecified; I10 Essential (primary) hypertension; E78.5 Hyperlipidemia, unspecified; I25.10 Atherosclerotic heart disease of native coronary artery without angina pectoris; R29.6 Repeated falls; F17.210 Nicotine dependence, cigarettes, uncomplicated; R13.14 Dysphagia, pharyngoesophageal phase; Z98.1 Arthrodesis status; Z79.890 Hormone replacement therapy; Z79.899 Other long term (current) drug therapy; Z98.890 Other specified postprocedural states; Z79.51 Long term (current) use of inhaled steroids
CPT/HCPCS: 36415; 36416; 70450; 70491; 71045; 72125; 74170; 80048; 80053; 80202; 81003; 82607; 83735; 84484; 85025; 91010; 93005; 93010; 94640; 94760; 96361; 96374; 96375; C9113; G0378; J1100; J1885; J2270; J2370; J2405; J3370; J3480; J3490; J7050; J7611; J7999; Q9967; U0002

== ENCOUNTER 2022-06-05 12:50 | Inpatient (IN) | payer OTHER ==
[2022-06-07] MEDS ORDERED: Ondansetron PF 4 MG/2 ML Vial IVP PRN (00:34)
[2022-06-07] MEDS ORDERED: Acetaminophen 325 MG TAB PO PRN (00:34)
[2022-06-07] MEDS ORDERED: Ondansetron ODT 4 MG TAB PO PRN (00:34)
[2022-06-07] MEDS ORDERED: Piperacillin/Tazobactam 3.375 GM in Sodium Chloride 0.9% 100 ML IVPB SCH (01:15)
[2022-06-07] MEDS: Morphine 4 MG/ML VIAL SLOW IVP PRN ×4 (01:23→20:08)
[2022-06-07] MEDS ORDERED: Acetaminophen 650 MG Suppository PR PRN (01:43)
[2022-06-07] MEDS ORDERED: Albuterol Sulfate 2.5 mg/3 ml Neb IPPB PRN (01:45)
[2022-06-07] MEDS: Nicotine 14 MG PATCH TD SCH (03:32)
[2022-06-07] MEDS: Piperacillin/Tazobactam 3.375 GM in Sodium Chloride 0.9% 100 ML IVPB SCH ×3 (05:24→22:24)
[2022-06-07 07:16] LABS: Hemoglobin 11.8 g/dL (14.0-18.0); Mean Corpuscular HGB CONC 31.6 g/dL (32.0-36.0); Mean Corpuscular Hemoglobin 31.3 pg (27.0-31.0); Mean Corpuscular Volume 99.2 fL (78.0-98.0); Mean Platelet Volume 7.5 fL (7.4-10.4); Platelet Count 260 thou/uL (130-400); RBC Distribution Width 12.4 % (11.5-14.5); Red Blood Cell (RBC) Count 3.76 mill/uL (4.70-6.10); White Blood Cell (WBC) Count 2.7 thou/uL (4.8-10.8)
[2022-06-07 07:34] LABS: ALT (SGPT) 17 U/L (8-55); AST (SGOT) 20 U/L (5-34); Albumin 3.7 g/dL (3.5-5.0); Alkaline Phosphatase 47 U/L (40-110); Anion Gap 14 mmol/L (10-20); BUN (Urea Nitrogen) 11 mg/dL (8.4-25.7); Bilirubin, Total 0.4 mg/dL (0.2-1.2); Calc. Creatinine Clearance 87 mL/min (70-130); Calcium 9.2 mg/dL (7.8-10.44); Carbon Dioxide 26 mmol/L (22-29); Chloride 98 mmol/L (98-107); Estimated GFR 108; Globulin 3.1 g/dL (2.4-3.5); Glucose 89 mg/dL (70-105); Potassium 4.1 mmol/L (3.5-5.1); Protein, Total 6.8 g/dL (6.0-8.3); Sodium 134 mmol/L (136-145)
[2022-06-07] MEDS: Famotidine/PF 20 mg/2ml Vial SLOW IVP SCH ×2 (08:50→20:06)
[2022-06-07] MEDS ORDERED: HYDROcodone/Acetaminophen 5/325 mg Tablet PO PRN (11:05)
[2022-06-07 11:19] LABS: Band 1 % (5-11); Eosinophils 12 % (0-10); Lymphocytes 19 % (21-51); MDiff Complete? YES; Monocytes 13 % (0-10); Neutrophil 53 % (42-75); Platelet Morphology Comment Appears Adequate; RBC Morphology Normal
[2022-06-08] MEDS: Morphine 4 MG/ML VIAL SLOW IVP PRN ×2 (01:40→06:09)
[2022-06-08] MEDS: Nicotine 14 MG PATCH TD SCH (01:50)
[2022-06-08] MEDS: Piperacillin/Tazobactam 3.375 GM in Sodium Chloride 0.9% 100 ML IVPB SCH ×3 (06:09→21:33)
[2022-06-08 07:01] LABS: Hemoglobin 11.6 g/dL (14.0-18.0); Mean Corpuscular HGB CONC 32.1 g/dL (32.0-36.0); Mean Corpuscular Hemoglobin 31.7 pg (27.0-31.0); Mean Corpuscular Volume 98.9 fL (78.0-98.0); Mean Platelet Volume 7.2 fL (7.4-10.4); Platelet Count 269 thou/uL (130-400); RBC Distribution Width 12.5 % (11.5-14.5); Red Blood Cell (RBC) Count 3.64 mill/uL (4.70-6.10); White Blood Cell (WBC) Count 2.9 thou/uL (4.8-10.8)
[2022-06-08 07:24] LABS: Anion Gap 12 mmol/L (10-20); BUN (Urea Nitrogen) 8 mg/dL (8.4-25.7); CK (CPK) 22 U/L (30-200); Calc. Creatinine Clearance 85 mL/min (70-130); Calcium 9.5 mg/dL (7.8-10.44); Carbon Dioxide 28 mmol/L (22-29); Cardiac Risk 3.4 (Less than 4.5); Chloride 98 mmol/L (98-107); Cholesterol 132 mg/dl (< 200 Desired); Estimated GFR 107; Glucose 88 mg/dL (70-105); HDL Cholesterol 39 mg/dL (>60 Neg Risk); LDL Cholesterol, Calculated 77 mg/dL; Magnesium 1.7 mg/dL (1.6-2.6); Potassium 4.1 mmol/L (3.5-5.1); Sodium 134 mmol/L (136-145); Triglycerides 80 mg/dL (Less than 150)
[2022-06-08 07:47] LABS: Band 1 % (5-11); Eosinophils 16 % (0-10); Lymphocytes 23 % (21-51); MDiff Complete? YES; Monocytes 17 % (0-10); Neutrophil 40 % (42-75); Platelet Morphology Comment Appears Adequate; Polychromasia SLIGHT = 2-3 cells (100X) (0-2/hpf)
[2022-06-08] MEDS: Famotidine/PF 20 mg/2ml Vial SLOW IVP SCH ×2 (09:02→21:33)
[2022-06-08] MEDS: HYDROcodone/Acetaminophen 10/325 mg Tablet PO PRN ×3 (10:04→18:36)
[2022-06-08 14:01] VITALS: BMI 17.1
[2022-06-09] MEDS: HYDROcodone/Acetaminophen 10/325 mg Tablet PO PRN ×5 (00:02→21:31)
[2022-06-09] MEDS: Nicotine 14 MG PATCH TD SCH (03:17)
[2022-06-09] MEDS: Piperacillin/Tazobactam 3.375 GM in Sodium Chloride 0.9% 100 ML IVPB SCH ×3 (06:00→21:30)
[2022-06-09 06:38] LABS: Hemoglobin 11.6 g/dL (14.0-18.0); Mean Corpuscular HGB CONC 31.4 g/dL (32.0-36.0); Mean Corpuscular Hemoglobin 31.2 pg (27.0-31.0); Mean Corpuscular Volume 99.1 fL (78.0-98.0); Mean Platelet Volume 7.1 fL (7.4-10.4); Platelet Count 294 thou/uL (130-400); RBC Distribution Width 12.5 % (11.5-14.5); Red Blood Cell (RBC) Count 3.72 mill/uL (4.70-6.10); White Blood Cell (WBC) Count 2.8 thou/uL (4.8-10.8)
[2022-06-09 06:47] LABS: Anion Gap 14 mmol/L (10-20); BUN (Urea Nitrogen) 7 mg/dL (8.4-25.7); Calc. Creatinine Clearance 81 mL/min (70-130); Calcium 9.5 mg/dL (7.8-10.44); Carbon Dioxide 26 mmol/L (22-29); Chloride 99 mmol/L (98-107); Estimated GFR 106; Glucose 91 mg/dL (70-105); Magnesium 1.7 mg/dL (1.6-2.6); Sodium 135 mmol/L (136-145)
[2022-06-09 06:57] LABS: Eosinophils 18 % (0-10); Lymphocytes 17 % (21-51); MDiff Complete? YES; Monocytes 25 % (0-10); Neutrophil 40 % (42-75)
[2022-06-09] MEDS: Famotidine/PF 20 mg/2ml Vial SLOW IVP SCH ×2 (08:55→21:32)
[2022-06-09] MEDS ORDERED: Benzonatate 100 MG CAP PO PRN (13:29)
[2022-06-09] MEDS ORDERED: Polyethylene Glycol 3350 17 GM Packet PO SCH (13:30)
[2022-06-09] MEDS ORDERED: guaiFENesin ER 600 MG TAB PO SCH (15:45)
[2022-06-09] MEDS: guaiFENesin/DM ER PO SCH (21:31)
[2022-06-09] MEDS: Senokot S 8.6-50 MG TAB PO SCH (21:32)
[2022-06-10] MEDS: Nicotine 14 MG PATCH TD SCH (03:14)
[2022-06-10] MEDS: HYDROcodone/Acetaminophen 10/325 mg Tablet PO PRN ×2 (03:14→08:32)
[2022-06-10] MEDS: Piperacillin/Tazobactam 3.375 GM in Sodium Chloride 0.9% 100 ML IVPB SCH (06:38)
[2022-06-10] MEDS: guaiFENesin/DM ER PO SCH (08:32)
[2022-06-10] MEDS: Famotidine/PF 20 mg/2ml Vial SLOW IVP SCH (08:32)
[2022-06-10] MEDS: Senokot S 8.6-50 MG TAB PO SCH (08:34)
[2022-06-10 08:37] VITALS: TEMP 97.9
[2022-06-10] MEDS ORDERED: Polyethylene Glycol 3350 17 GM Packet PO SCH (09:00)
[2022-06-10 11:45] VITALS: BP 116/77
== END 2022-06-10 15:29 | disposition home or self-care (01) | DRG 391 ==
LOC: T4-B 06-06 18:28
PROVIDERS: ADMIT Family Medicine; ATTEND Internal Medicine
DX: K22.0 Achalasia of cardia (principal); E43 Unspecified severe protein-calorie malnutrition; Z68.1 Body mass index [BMI] 19.9 or less, adult; J05.10 Acute epiglottitis without obstruction; R64 Cachexia; Z20.822 Contact with and (suspected) exposure to COVID-19; J44.9 Chronic obstructive pulmonary disease, unspecified; E03.9 Hypothyroidism, unspecified; I10 Essential (primary) hypertension; E78.5 Hyperlipidemia, unspecified; I25.10 Atherosclerotic heart disease of native coronary artery without angina pectoris; E16.2 Hypoglycemia, unspecified; F17.210 Nicotine dependence, cigarettes, uncomplicated; K59.00 Constipation, unspecified; Z98.1 Arthrodesis status
CPT/HCPCS: 36415; 36416; 71045; 80048; 80053; 80061; 82550; 83735; 85025; J2270; J2543; J3490; S0028; U0003; U0005

== ENCOUNTER 2022-06-19 14:11 | Emergency (ER) | payer OTHER ==
[2022-06-19 15:01] LABS: #Basophils 0.1 thou/uL (0.0-0.2); #Eosinphils 0.6 thou/uL (0.0-0.7); #Lymphocytes 0.5 thou/uL (1.20-3.40); #Monocytes 0.3 thou/uL (0.11-0.59); #Neutrophils 2.2 thou/uL (1.40-6.50); %Basophils 2.1 % (0.0-1.0); %Eosinophils 15.8 % (0.0-10.0); %Lymphocytes 13.1 % (21.0-51.0); %Neutrophils 60.1 % (42.0-75.0); Hemoglobin 11.4 g/dL (14.0-18.0); Mean Corpuscular HGB CONC 31.9 g/dL (32.0-36.0); Mean Corpuscular Hemoglobin 31.7 pg (27.0-31.0); Mean Corpuscular Volume 99.6 fL (78.0-98.0); Mean Platelet Volume 6.9 fL (7.4-10.4); Platelet Count 281 thou/uL (130-400); RBC Distribution Width 13.5 % (11.5-14.5); Red Blood Cell (RBC) Count 3.59 mill/uL (4.70-6.10); White Blood Cell (WBC) Count 3.6 thou/uL (4.8-10.8)
[2022-06-19 15:32] LABS: ALT (SGPT) 12 U/L (8-55); AST (SGOT) 19 U/L (5-34); Albumin 3.8 g/dL (3.5-5.0); Alkaline Phosphatase 57 U/L (40-110); Anion Gap 10 mmol/L (10-20); Bilirubin, Total 0.3 mg/dL (0.2-1.2); Calc. Creatinine Clearance 0 mL/min (70-130); Calcium 8.9 mg/dL (7.8-10.44); Carbon Dioxide 32 mmol/L (22-29); Chloride 100 mmol/L (98-107); Estimated GFR 108; Globulin 2.9 g/dL (2.4-3.5); Glucose 112 mg/dL (70-105); Lipase 31 U/L (8-78); Potassium 3.6 mmol/L (3.5-5.1); Protein, Total 6.7 g/dL (6.0-8.3); Sodium 138 mmol/L (136-145)
[2022-06-19 15:51] LABS: BUN (Urea Nitrogen) 7 mg/dL (8.4-25.7)
== END 2022-06-19 16:10 | disposition home or self-care (01) ==
LOC: ERS 14:11
DX: R07.89 Other chest pain (principal); K22.0 Achalasia of cardia; E03.9 Hypothyroidism, unspecified; I10 Essential (primary) hypertension; Z87.891 Personal history of nicotine dependence
CPT/HCPCS: 36415; 71045; 80053; 83690; 84484; 85025; 93005; 94760

== ENCOUNTER 2022-07-19 11:46 | Emergency (ER) | payer OTHER ==
[2022-07-19 12:14] LABS: #Eosinphils 0.2 thou/uL (0.0-0.7); #Lymphocytes 0.6 thou/uL (1.20-3.40); #Monocytes 0.4 thou/uL (0.11-0.59); #Neutrophils 2.5 thou/uL (1.40-6.50); %Eosinophils 5.2 % (0.0-10.0); %Lymphocytes 15.7 % (21.0-51.0); %Monocytes 9.8 % (0.0-10.0); %Neutrophils 69.3 % (42.0-75.0); Hemoglobin 15.5 g/dL (14.0-18.0); Mean Corpuscular Hemoglobin 31.5 pg (27.0-31.0); Mean Platelet Volume 7.6 fL (7.4-10.4); Platelet Count 197 thou/uL (130-400); RBC Distribution Width 14.2 % (11.5-14.5); Red Blood Cell (RBC) Count 4.93 mill/uL (4.70-6.10); White Blood Cell (WBC) Count 3.6 thou/uL (4.8-10.8)
[2022-07-19 12:35] LABS: ALT (SGPT) 10 U/L (8-55); AST (SGOT) 20 U/L (5-34); Albumin 4.3 g/dL (3.5-5.0); Alkaline Phosphatase 55 U/L (40-110); Anion Gap 14 mmol/L (10-20); BUN (Urea Nitrogen) 9 mg/dL (8.4-25.7); Bilirubin, Total 0.9 mg/dL (0.2-1.2); Calc. Creatinine Clearance 0 mL/min (70-130); Carbon Dioxide 25 mmol/L (22-29); Chloride 98 mmol/L (98-107); Estimated GFR 108; Globulin 2.8 g/dL (2.4-3.5); Glucose 92 mg/dL (70-105); Potassium 4.1 mmol/L (3.5-5.1); Protein, Total 7.1 g/dL (6.0-8.3); Sodium 133 mmol/L (136-145)
== END 2022-07-19 12:14 | disposition home or self-care (01) ==
LOC: ERS 11:46
DX: K56.41 Fecal impaction (principal); J44.9 Chronic obstructive pulmonary disease, unspecified; I25.10 Atherosclerotic heart disease of native coronary artery without angina pectoris; E03.9 Hypothyroidism, unspecified; K21.9 Gastro-esophageal reflux disease without esophagitis; E78.5 Hyperlipidemia, unspecified; I10 Essential (primary) hypertension; Z87.891 Personal history of nicotine dependence
CPT/HCPCS: 36415; 80053; 85025; 99283

== ENCOUNTER 2022-10-10 17:57 | Emergency (ER) | payer OTHER, SELFPAY ==
[2022-10-10 20:26] LABS: Hemoglobin 16.6 g/dL (14.0-18.0); Mean Corpuscular HGB CONC 32.7 g/dL (32.0-36.0); Mean Corpuscular Hemoglobin 32.3 pg (27.0-31.0); Mean Corpuscular Volume 98.7 fl (78.0-98.0); Mean Platelet Volume 7.6 fL (7.4-10.4); Platelet Count 148 10x3/uL (130-400); Red Blood Cell (RBC) Count 5.13 mill/uL (4.70-6.10); White Blood Cell (WBC) Count 3.2 10x3/uL (4.8-10.8)
[2022-10-10 20:54] LABS: Eosinophils 7 % (0-10); Lymphocytes 21 % (21-51); MDiff Complete? YES; Monocytes 13 % (0-10); Neutrophil 58 % (42-75); Target Cells SLIGHT = 2-5 cells (100X) (0-1/hpf)
[2022-10-10 21:06] LABS: ALT (SGPT) 10 U/L (8-55); AST (SGOT) 26 U/L (5-34); Alcohol 115 mg/dL (Less than 10); Alkaline Phosphatase 57 U/L (40-110); Anion Gap 20 mmol/L (10-20); BUN (Urea Nitrogen) 10 mg/dL (8.4-25.7); Bilirubin, Total 0.3 mg/dL (0.2-1.2); Calc. Creatinine Clearance 0 mL/min (70-130); Carbon Dioxide 16 mmol/L (22-29); Chloride 97 mmol/L (98-107); Estimated GFR 107; Globulin 3.6 g/dL (2.4-3.5); Glucose 67 mg/dL (70-105); Potassium 5.5 mmol/L (3.5-5.1); Protein, Total 7.6 g/dL (6.0-8.3); Sodium 127 mmol/L (136-145)
== END 2022-10-10 21:57 | disposition home or self-care (01) ==
LOC: ERS 17:57
DX: F10.129 Alcohol abuse with intoxication, unspecified (principal); G62.1 Alcoholic polyneuropathy; R20.0 Anesthesia of skin; R29.700 NIHSS score 0; I10 Essential (primary) hypertension; K21.9 Gastro-esophageal reflux disease without esophagitis; E03.9 Hypothyroidism, unspecified; J42 Unspecified chronic bronchitis; J43.9 Emphysema, unspecified; I25.10 Atherosclerotic heart disease of native coronary artery without angina pectoris; E78.00 Pure hypercholesterolemia, unspecified; Y90.5 Blood alcohol level of 100-119 mg/100 ml; Z87.891 Personal history of nicotine dependence; Z86.73 Personal history of transient ischemic attack (TIA), and cerebral infarction without residual deficits
CPT/HCPCS: 36415; 70450; 80053; 80307; 85025

== ENCOUNTER 2023-01-24 03:28 | Inpatient (IN) | payer OTHER ==
[2023-01-24] MEDS ORDERED: Metoclopramide HCl 10 MG/2 ML VIAL ONE (04:00)
[2023-01-24] MEDS ORDERED: Ipratropium/Albuterol 3 ML NEB ONE (04:13)
[2023-01-24 04:14] LABS: Hemoglobin 14.7 g/dL (14.0-18.0); Mean Corpuscular HGB CONC 31.8 g/dL (32.0-36.0); Mean Corpuscular Hemoglobin 31.3 pg (27.0-31.0); Mean Corpuscular Volume 98.4 fl (78.0-98.0); Mean Platelet Volume 7.6 fL (7.4-10.4); Platelet Count 175 10x3/uL (130-400); RBC Distribution Width 12.5 % (11.5-14.5); Red Blood Cell (RBC) Count 4.69 mill/uL (4.70-6.10); White Blood Cell (WBC) Count 2.5 10x3/uL (4.8-10.8)
[2023-01-24 04:18] LABS: ALT (SGPT) 20 U/L (8-55); AST (SGOT) 32 U/L (5-34); Albumin 4.3 g/dL (3.5-5.0); Alkaline Phosphatase 55 U/L (40-110); Anion Gap 15 mmol/L (10-20); BUN (Urea Nitrogen) 4 mg/dL (8.4-25.7); Bilirubin, Total 0.5 mg/dL (0.2-1.2); Calc. Creatinine Clearance 0 mL/min (70-130); Calcium 9.2 mg/dL (7.8-10.44); Carbon Dioxide 25 mmol/L (22-29); Chloride 92 mmol/L (98-107); Estimated GFR 106; Glucose 75 mg/dL (70-105); Potassium 4.1 mmol/L (3.5-5.1); Protein, Total 7.3 g/dL (6.0-8.3); Sodium 128 mmol/L (136-145)
[2023-01-24 04:28] LABS: INR-International Normal Ratio 0.9; Prothrombin Time 12.8 sec (12.0-14.7)
[2023-01-24 04:29] LABS: PTT 34.5 sec (22.9-36.1)
[2023-01-24 04:38] LABS: Band 2 % (5-11); Eosinophils 18 % (0-10); Lymphocytes 19 % (21-51); MDiff Complete? YES; Macrocytosis SLIGHT = 6-15 cells (100X) (0-5/hpf); Monocytes 11 % (0-10); Neutrophil 48 % (42-75); Ovalocytes SLIGHT = 2-5 cells (100X) (0-1/hpf); Platelet Morphology Comment Appears Adequate
[2023-01-24] MEDS ORDERED: methylPREDNISolone Sod Succ/PF 125 MG/2 ML VIAL ONE (05:51)
[2023-01-24 08:39] LABS: Magnesium 1.8 mg/dL (1.6-2.6); Phosphorus 3.7 mg/dL (2.3-4.7)
[2023-01-24 08:58] LABS: Troponin I 0.019 ng/mL (< 0.028)
[2023-01-24] MEDS ORDERED: Iopamidol 370 76% 100 ML VIAL ONE (08:58)
[2023-01-24] MEDS: Chlorhexidine Gluconate 15 ML UDCUP SSP SCH ×2 (09:41→20:06)
[2023-01-24] MEDS ORDERED: Electrolyte Replacement Protocol 1 EACH FS SCH (09:45)
[2023-01-24] MEDS ORDERED: Magnesium 2 GM/50 ML(in water) 2 GM in Premix Bag 1 BAG IVPB SCH (09:45)
[2023-01-24] MEDS ORDERED: Ondansetron PF 4 MG/2 ML Vial IVP PRN (09:51)
[2023-01-24] MEDS ORDERED: Ondansetron ODT 4 MG TAB PO PRN (09:51)
[2023-01-24] MEDS ORDERED: Senokot S 8.6-50 MG TAB PO PRN (09:51)
[2023-01-24] MEDS ORDERED: cloNIDine 0.1 MG TAB PO PRN (09:56)
[2023-01-24] MEDS ORDERED: Ipratropium/Albuterol 3 ML NEB NEB PRN (09:58)
[2023-01-24] MEDS ORDERED: Sodium Chloride 0.9% 1,000 ML IV SCH (10:00)
[2023-01-24] MEDS ORDERED: Levothyroxine Sodium 75 MCG TAB PO SCH (10:00)
[2023-01-24] MEDS ORDERED: Nitroglycerin 0.4 MG TAB (25 Tab Bottle) SL PRN (10:01)
[2023-01-24] MEDS ORDERED: Doxycycline 100 MG CAP PO SCH (10:15)
[2023-01-24] MEDS ORDERED: Aspirin 81 mg Enteric Coated Tablet PO SCH (10:15)
[2023-01-24 10:20] LABS: Amphetamine Not Detected (NotDetected); Barbiturates Screen Not Detected (NotDetected); Benzodiazepine Screen Not Detected (NotDetected); Cocaine Metabolite Screen Detected (NotDetected); Methadone Not Detected (NotDetected); Methamphetamine Not Detected (NotDetected); Opiate Screen Not Detected (NotDetected); Oxycodone Screen Not Detected (NotDetected); Phencyclidine (PCP) Not Detected (NotDetected); THC/Cannabinoid Screen Not Detected (NotDetected); Tricyclic Screen Not Detected (NotDetected)
[2023-01-24] MEDS ORDERED: Aspirin Chewable 81 MG TAB ONE (11:54)
[2023-01-24 12:13] LABS: Troponin I 0.015 ng/mL (< 0.028)
[2023-01-24] MEDS: cefTRIAXone\\ROCEPHIN 1 GM in Sodium Chloride 0.9% 100 ML IVPB SCH (13:29)
[2023-01-24] MEDS: Multivit, Therapeutic 1 TAB PO SCH (13:29)
[2023-01-24] MEDS: Thiamine 100 MG TAB PO SCH (13:30)
[2023-01-24] MEDS: methylPREDNISolone Sod Succ 40 MG VIAL IVP SCH ×2 (13:30→17:23)
[2023-01-24] MEDS: Folic Acid 1 MG TAB PO SCH (13:31)
[2023-01-24] MEDS: Ipratropium/Albuterol 3 ML NEB NEB SCH ×4 (14:27→23:47)
[2023-01-24] MEDS: Mometasone/Formoterol 200/5 60 PUFF INH SCH (18:41)
[2023-01-24] MEDS: Doxycycline 100 MG CAP PO SCH (20:06)
[2023-01-24] MEDS: Heparin 5,000 UNITS/ML VIAL SC SCH (20:06)
[2023-01-24] MEDS: guaiFENesin ER 600 MG TAB PO SCH (20:16)
[2023-01-24] MEDS ORDERED: GUAIFENESIN SF SOLN 200 MG/10 ML UDCUP PO PRN (20:24)
[2023-01-25] MEDS: methylPREDNISolone Sod Succ 40 MG VIAL IVP SCH ×4 (00:08→17:12)
[2023-01-25] MEDS: Acetaminophen 325 MG TAB PO PRN ×2 (01:11→10:27)
[2023-01-25 02:05] VITALS: BMI 18.2
[2023-01-25] MEDS: Ipratropium/Albuterol 3 ML NEB NEB SCH ×5 (03:57→18:19)
[2023-01-25 04:59] LABS: Anion Gap 14 mmol/L (10-20); BUN (Urea Nitrogen) 15 mg/dL (8.4-25.7); Calc. Creatinine Clearance 75 mL/min (70-130); Calcium 8.9 mg/dL (7.8-10.44); Carbon Dioxide 25 mmol/L (22-29); Chloride 97 mmol/L (98-107); Estimated GFR 101; Glucose 122 mg/dL (70-105); Potassium 4.7 mmol/L (3.5-5.1); Sodium 131 mmol/L (136-145)
[2023-01-25] MEDS: Levothyroxine Sodium 75 MCG TAB PO SCH (05:13)
[2023-01-25] MEDS: Mometasone/Formoterol 200/5 60 PUFF INH SCH ×2 (06:25→18:18)
[2023-01-25] MEDS: Heparin 5,000 UNITS/ML VIAL SC SCH ×2 (08:49→19:34)
[2023-01-25] MEDS: guaiFENesin ER 600 MG TAB PO SCH ×2 (08:49→19:33)
[2023-01-25] MEDS: Aspirin 81 mg Enteric Coated Tablet PO SCH (08:49)
[2023-01-25] MEDS: Doxycycline 100 MG CAP PO SCH ×2 (08:49→19:34)
[2023-01-25] MEDS: Chlorhexidine Gluconate 15 ML UDCUP SSP SCH ×2 (08:49→19:33)
[2023-01-25] MEDS: Thiamine 100 MG TAB PO SCH (10:28)
[2023-01-25] MEDS: cefTRIAXone\\ROCEPHIN 1 GM in Sodium Chloride 0.9% 100 ML IVPB SCH (10:28)
[2023-01-25] MEDS: Folic Acid 1 MG TAB PO SCH (10:28)
[2023-01-25] MEDS: Multivit, Therapeutic 1 TAB PO SCH (10:28)
[2023-01-25] MEDS ORDERED: Ipratropium/Albuterol 3 ML NEB NEB PRN (14:45)
[2023-01-25] MEDS: Calcium Carbonate 500 MG ChewTAB PO PRN (17:54)
[2023-01-26] MEDS: methylPREDNISolone Sod Succ 40 MG VIAL IVP SCH ×5 (00:26→23:54)
[2023-01-26] MEDS: Ipratropium/Albuterol 3 ML NEB NEB SCH ×5 (01:39→22:01)
[2023-01-26 04:43] LABS: Hemoglobin 12.9 g/dL (14.0-18.0); Mean Corpuscular HGB CONC 28.4 g/dL (32.0-36.0); Mean Platelet Volume 7.9 fL (7.4-10.4); Platelet Count 169 10x3/uL (130-400); RBC Distribution Width 12.8 % (11.5-14.5); Red Blood Cell (RBC) Count 4.44 mill/uL (4.70-6.10)
[2023-01-26 04:49] LABS: Anion Gap 14 mmol/L (10-20); BUN (Urea Nitrogen) 16 mg/dL (8.4-25.7); Calc. Creatinine Clearance 77 mL/min (70-130); Calcium 9.4 mg/dL (7.8-10.44); Carbon Dioxide 26 mmol/L (22-29); Chloride 95 mmol/L (98-107); Estimated GFR 102; Glucose 135 mg/dL (70-105); Potassium 4.6 mmol/L (3.5-5.1); Sodium 130 mmol/L (136-145)
[2023-01-26] MEDS: Levothyroxine Sodium 75 MCG TAB PO SCH (05:54)
[2023-01-26] MEDS: Mometasone/Formoterol 200/5 60 PUFF INH SCH ×2 (07:10→21:02)
[2023-01-26] MEDS: guaiFENesin ER 600 MG TAB PO SCH ×2 (08:38→19:59)
[2023-01-26] MEDS: Aspirin 81 mg Enteric Coated Tablet PO SCH (08:38)
[2023-01-26] MEDS: Doxycycline 100 MG CAP PO SCH ×2 (08:38→20:00)
[2023-01-26] MEDS: Heparin 5,000 UNITS/ML VIAL SC SCH ×2 (08:38→20:00)
[2023-01-26] MEDS: Chlorhexidine Gluconate 15 ML UDCUP SSP SCH ×2 (08:48→20:00)
[2023-01-26 09:06] LABS: #Lymphocytes 0.3 thou/uL (1.20-3.40); #Monocytes 0.3 thou/uL (0.11-0.59); #Neutrophils 6.4 thou/uL (1.40-6.50); %Eosinophils 0.1 % (0.0-10.0); %Lymphocytes 4.1 % (21.0-51.0); %Monocytes 4.6 % (0.0-10.0); %Neutrophils 91.1 % (42.0-75.0)
[2023-01-26] MEDS: cefTRIAXone\\ROCEPHIN 1 GM in Sodium Chloride 0.9% 100 ML IVPB SCH (11:11)
[2023-01-26] MEDS: Multivit, Therapeutic 1 TAB PO SCH (11:12)
[2023-01-26] MEDS: Folic Acid 1 MG TAB PO SCH (11:12)
[2023-01-26] MEDS: Thiamine 100 MG TAB PO SCH (11:12)
[2023-01-26] MEDS: Acetaminophen 325 MG TAB PO PRN (17:05)
[2023-01-27] MEDS: Levothyroxine Sodium 75 MCG TAB PO SCH (05:19)
[2023-01-27] MEDS: methylPREDNISolone Sod Succ 40 MG VIAL IVP SCH ×3 (05:19→21:05)
[2023-01-27 06:08] LABS: #Lymphocytes 0.5 thou/uL (1.20-3.40); #Monocytes 0.5 thou/uL (0.11-0.59); #Neutrophils 6.1 thou/uL (1.40-6.50); %Eosinophils 0.1 % (0.0-10.0); %Monocytes 6.6 % (0.0-10.0); %Neutrophils 86.3 % (42.0-75.0); Hemoglobin 14.6 g/dL (14.0-18.0); Mean Corpuscular HGB CONC 32.3 g/dL (32.0-36.0); Mean Corpuscular Hemoglobin 32.7 pg (27.0-31.0); Mean Platelet Volume 7.8 fL (7.4-10.4); Platelet Count 160 10x3/uL (130-400); RBC Distribution Width 12.6 % (11.5-14.5); Red Blood Cell (RBC) Count 4.46 mill/uL (4.70-6.10); White Blood Cell (WBC) Count 7.1 10x3/uL (4.8-10.8)
[2023-01-27 06:32] LABS: Anion Gap 13 mmol/L (10-20); BUN (Urea Nitrogen) 21 mg/dL (8.4-25.7); Calc. Creatinine Clearance 88 mL/min (70-130); Carbon Dioxide 29 mmol/L (22-29); Chloride 89 mmol/L (98-107); Estimated GFR 106; Glucose 102 mg/dL (70-105); Potassium 4.7 mmol/L (3.5-5.1); Sodium 126 mmol/L (136-145)
[2023-01-27] MEDS: Mometasone/Formoterol 200/5 60 PUFF INH SCH ×2 (06:45→18:20)
[2023-01-27] MEDS: Ipratropium/Albuterol 3 ML NEB NEB SCH ×3 (06:50→18:20)
[2023-01-27] MEDS: Aspirin 81 mg Enteric Coated Tablet PO SCH (08:24)
[2023-01-27] MEDS: Doxycycline 100 MG CAP PO SCH ×2 (08:24→19:59)
[2023-01-27] MEDS: guaiFENesin ER 600 MG TAB PO SCH ×2 (08:24→19:59)
[2023-01-27] MEDS: Heparin 5,000 UNITS/ML VIAL SC SCH (08:24)
[2023-01-27] MEDS: Chlorhexidine Gluconate 15 ML UDCUP SSP SCH (11:29)
[2023-01-27] MEDS: Folic Acid 1 MG TAB PO SCH (11:29)
[2023-01-27] MEDS: Thiamine 100 MG TAB PO SCH (11:30)
[2023-01-27] MEDS: Multivit, Therapeutic 1 TAB PO SCH (11:30)
[2023-01-27] MEDS: Sodium Chloride 1 GM TAB PO SCH ×2 (11:30→19:59)
[2023-01-27] MEDS: Acetaminophen 325 MG TAB PO PRN (17:31)
[2023-01-28] MEDS: Ipratropium/Albuterol 3 ML NEB NEB SCH ×4 (01:20→18:35)
[2023-01-28] MEDS: Levothyroxine Sodium 75 MCG TAB PO SCH (05:27)
[2023-01-28] MEDS: methylPREDNISolone Sod Succ 40 MG VIAL IVP SCH ×3 (05:28→21:41)
[2023-01-28 06:28] LABS: Hemoglobin 13.8 g/dL (14.0-18.0); Mean Corpuscular HGB CONC 29.1 g/dL (32.0-36.0); Mean Corpuscular Hemoglobin 29.5 pg (27.0-31.0); Platelet Count 167 10x3/uL (130-400); RBC Distribution Width 12.7 % (11.5-14.5); Red Blood Cell (RBC) Count 4.68 mill/uL (4.70-6.10); White Blood Cell (WBC) Count 5.6 10x3/uL (4.8-10.8)
[2023-01-28 06:31] LABS: Anion Gap 14 mmol/L (10-20); BUN (Urea Nitrogen) 24 mg/dL (8.4-25.7); Calc. Creatinine Clearance 82 mL/min (70-130); Calcium 9.9 mg/dL (7.8-10.44); Carbon Dioxide 29 mmol/L (22-29); Chloride 91 mmol/L (98-107); Estimated GFR 104; Glucose 92 mg/dL (70-105); Potassium 4.7 mmol/L (3.5-5.1); Sodium 129 mmol/L (136-145)
[2023-01-28] MEDS: Mometasone/Formoterol 200/5 60 PUFF INH SCH ×2 (06:47→18:35)
[2023-01-28 07:34] LABS: #Lymphocytes 0.5 thou/uL (1.20-3.40); #Monocytes 0.5 thou/uL (0.11-0.59); #Neutrophils 4.6 thou/uL (1.40-6.50); %Eosinophils 0.1 % (0.0-10.0); %Lymphocytes 8.6 % (21.0-51.0); %Monocytes 8.3 % (0.0-10.0); Hypochromia SLIGHT = 6-15 cells (100X) (0-5/hpf); MDiff Complete? YES; Platelet Morphology Comment Appears Adequate; Polychromasia SLIGHT = 2-3 cells (100X) (0-2/hpf); Stomatocytes SLIGHT = 2-5 cells (100X) (0-1/hpf); Target Cells SLIGHT = 2-5 cells (100X) (0-1/hpf)
[2023-01-28] MEDS: Sodium Chloride 1 GM TAB PO SCH ×2 (08:20→21:35)
[2023-01-28] MEDS: guaiFENesin ER 600 MG TAB PO SCH ×2 (08:21→21:35)
[2023-01-28] MEDS: Aspirin 81 mg Enteric Coated Tablet PO SCH (08:21)
[2023-01-28] MEDS: Doxycycline 100 MG CAP PO SCH ×2 (08:21→21:35)
[2023-01-28] MEDS: Acetaminophen 325 MG TAB PO PRN ×2 (08:38→21:35)
[2023-01-28] MEDS: Thiamine 100 MG TAB PO SCH (11:58)
[2023-01-28] MEDS: Folic Acid 1 MG TAB PO SCH (11:58)
[2023-01-28] MEDS: Multivit, Therapeutic 1 TAB PO SCH (11:58)
[2023-01-28] MEDS: Calcium Carbonate 500 MG ChewTAB PO PRN (19:36)
[2023-01-28] MEDS ORDERED: Lidocaine 2% Viscous Solution 10 ML, Aluminum & Magnesium Hydroxide 30 ML SSW SCH (23:00)
[2023-01-29] MEDS: Ipratropium/Albuterol 3 ML NEB NEB SCH ×2 (00:22→07:11)
[2023-01-29] MEDS: methylPREDNISolone Sod Succ 40 MG VIAL IVP SCH (05:36)
[2023-01-29] MEDS: Levothyroxine Sodium 75 MCG TAB PO SCH (05:36)
[2023-01-29 06:46] LABS: #Lymphocytes 0.3 thou/uL (1.20-3.40); #Monocytes 0.4 thou/uL (0.11-0.59); #Neutrophils 2.7 thou/uL (1.40-6.50); %Basophils 0.2 % (0.0-1.0); %Eosinophils 0.4 % (0.0-10.0); %Lymphocytes 7.8 % (21.0-51.0); %Neutrophils 79.6 % (42.0-75.0); Anion Gap 14 mmol/L (10-20); BUN (Urea Nitrogen) 25 mg/dL (8.4-25.7); Calc. Creatinine Clearance 79 mL/min (70-130); Calcium 9.8 mg/dL (7.8-10.44); Carbon Dioxide 29 mmol/L (22-29); Chloride 92 mmol/L (98-107); Estimated GFR 102; Glucose 95 mg/dL (70-105); Hemoglobin 13.6 g/dL (14.0-18.0); Mean Corpuscular HGB CONC 29.5 g/dL (32.0-36.0); Mean Corpuscular Hemoglobin 30.1 pg (27.0-31.0); Platelet Count 165 10x3/uL (130-400); Potassium 5.1 mmol/L (3.5-5.1); RBC Distribution Width 12.8 % (11.5-14.5); Red Blood Cell (RBC) Count 4.52 mill/uL (4.70-6.10); Sodium 130 mmol/L (136-145); White Blood Cell (WBC) Count 3.4 10x3/uL (4.8-10.8)
[2023-01-29] MEDS: Mometasone/Formoterol 200/5 60 PUFF INH SCH (07:07)
[2023-01-29] MEDS: Acetaminophen 325 MG TAB PO PRN (08:00)
[2023-01-29] MEDS: guaiFENesin ER 600 MG TAB PO SCH (08:00)
[2023-01-29] MEDS: Sodium Chloride 1 GM TAB PO SCH (08:00)
[2023-01-29] MEDS: Aspirin 81 mg Enteric Coated Tablet PO SCH (08:00)
[2023-01-29] MEDS: Doxycycline 100 MG CAP PO SCH (08:00)
[2023-01-29 08:27] VITALS: BP 118/82; TEMP 98.3
== END 2023-01-29 09:09 | disposition home or self-care (01) | DRG 189 ==
LOC: ERS 03:28 → ERHOLD 08:10 → 2SW 13:05 → OBSVTOIN 01-26 11:20 → T4-A 01-26 18:44
PROVIDERS: ADMIT Internal Medicine; ATTEND Internal Medicine
DX: J96.01 Acute respiratory failure with hypoxia (principal); J44.1 Chronic obstructive pulmonary disease with (acute) exacerbation; J45.901 Unspecified asthma with (acute) exacerbation; E87.1 Hypo-osmolality and hyponatremia; F17.210 Nicotine dependence, cigarettes, uncomplicated; I10 Essential (primary) hypertension; E03.9 Hypothyroidism, unspecified; F14.10 Cocaine abuse, uncomplicated; E83.42 Hypomagnesemia; Z91.148 Patient's other noncompliance with medication regimen for other reason; Z79.890 Hormone replacement therapy; Z79.899 Other long term (current) drug therapy
CPT/HCPCS: 36415; 70450; 70487; 71045; 80048; 80053; 80306; 83605; 83735; 83880; 83930; 83935; 84100; 84300; 84439; 84443; 84484; 85025; 85610; 85652; 85730; 86140; 93005; 93010; 94640; 94667; 94668; 94760; 96372; 96374; 96375; 96376; G0378; J0696; J1644; J1650; J2405; J2765; J2920; J2930; J3475; J3490; J7050; J7620; Q9967

== ENCOUNTER 2023-03-11 17:02 | Observation (INO) | payer OTHER ==
[~2023-03-11 17:02] MED LIST: Iopamidol-370 76% 500 ML MDV (1 ML CHARGE) ONE
[2023-03-11 17:24] LABS: Hemoglobin 15.1 g/dL (14.0-18.0); Manual Diff?? YES; Mean Corpuscular HGB CONC 33.6 g/dL (32.0-36.0); Mean Corpuscular Hemoglobin 32.1 pg (27.0-31.0); Mean Corpuscular Volume 95.7 fl (78.0-98.0); Mean Platelet Volume 9.8 fL (7.4-10.4); Platelet Count 176 10x3/uL (130-400); RBC Distribution Width 13.5 % (11.5-14.5); White Blood Cell (WBC) Count 2.3 10x3/uL (4.8-10.8)
[2023-03-11 17:29] LABS: Delete Auto Diff?? YES
[2023-03-11 17:38] LABS: ALT (SGPT) 20 U/L (8-55); AST (SGOT) 33 U/L (5-34); Albumin 3.9 g/dL (3.5-5.0); Alkaline Phosphatase 60 U/L (40-110); Anion Gap 15 mmol/L (10-20); BUN (Urea Nitrogen) 8 mg/dL (8.4-25.7); Bilirubin, Total 0.3 mg/dL (0.2-1.2); CK (CPK) 63 U/L (30-200); Calc. Creatinine Clearance 0 mL/min (70-130); Calcium 8.9 mg/dL (7.8-10.44); Carbon Dioxide 22 mmol/L (22-29); Chloride 101 mmol/L (98-107); Estimated GFR 109; Globulin 2.7 g/dL (2.4-3.5); Glucose 98 mg/dL (70-105); PTT 33.3 sec (22.9-36.1); Potassium 3.8 mmol/L (3.5-5.1); Protein, Total 6.6 g/dL (6.0-8.3); Prothrombin Time 13.4 sec (12.0-14.7); Sodium 134 mmol/L (136-145)
[2023-03-11] MEDS ORDERED: Aspirin Chewable 81 MG TAB ONE (17:49)
[2023-03-11 18:06] LABS: Band 1 % (5-11); Burr Cells SLIGHT = 2-5 cells HPF (0-1); CellaVision Operator ID LAB.KB; Eosinophils 9 % (0-10); Large Platelets 8.8 % (0-5); Lymphocytes 13 % (21-51); Monocytes 23 % (0-10); Neutrophil 53 % (42-75); Platelet Adequacy Comment Platelets Normal; Polychromasia SLIGHT = 2-3 cells HPF (0-2); Smudge Cells 36.3 %; Total Cell Count 102
[2023-03-11] MEDS ORDERED: Levothyroxine Sodium 75 MCG TAB PO SCH (18:36)
[2023-03-11 18:38] LABS: Acetaminophen Less than 10 mcg/mL (10.0-30.0); Alcohol 21.6 mg/dL (Less than 10); Lipase 40 U/L (8-78); Salicylate Less than 8.0 mg/dL (15.0-30.0)
[2023-03-11] MEDS ORDERED: Senokot S 8.6-50 MG TAB PO PRN (18:38)
[2023-03-11] MEDS ORDERED: Acetaminophen 325 MG TAB PO PRN (18:38)
[2023-03-11] MEDS ORDERED: Ondansetron ODT 4 MG TAB PO PRN (18:38)
[2023-03-11] MEDS ORDERED: Atorvastatin Calcium 40 MG TAB PO SCH (21:00)
[2023-03-11 23:06] VITALS: BMI 17.2
[2023-03-12] MEDS ORDERED: Morphine 4 MG/ML VIAL SLOW IVP SCH ×2 (00:45→03:30)
[2023-03-12 01:31] LABS: Amphetamine Not Detected (NotDetected); Bacteria/HPF None Seen HPF (None Seen); Barbiturates Screen Not Detected (NotDetected); Benzodiazepine Screen Not Detected (NotDetected); Bilirubin Negative (Negative); Blood, Urine Negative (Negative); CAUTI Indications for Culture Alt mental st,lethar; Clarity Clear (Clear); Cocaine Metabolite Screen Detected (NotDetected); Glucose, Urine (Dipstick) Normal (Negative); Ketone, Urine Negative (Negative); Leukocyte Negative Leu/uL (Negative); Methadone Not Detected (NotDetected); Methamphetamine Not Detected (NotDetected); Nitrite Negative (Negative); Opiate Screen Not Detected (NotDetected); Oxycodone Screen Not Detected (NotDetected); Phencyclidine (PCP) Not Detected (NotDetected); Protein, Urine (Dipstick) 20 mg/dL (Neg-Trace); RBC/HPF 0-3 HPF (0-3); Squamous Epithelial None Seen HPF (0-3); THC/Cannabinoid Screen Not Detected (NotDetected); Tricyclic Screen Not Detected (NotDetected); Urobilinogen Normal mg/dL (Less than 2); WBC/HPF 0-3 HPF (0-3); pH, Urine 6.5 (5.0-9.0)
[2023-03-12 01:35] LABS: Specific Gravity, Urine Greater than 1.060 (1.002-1.036)
[2023-03-12 01:36] LABS: Urine Culture Reflex No No
[2023-03-12] MEDS ORDERED: Morphine 4 MG/ML VIAL SLOW IVP PRN (03:16)
[2023-03-12 05:09] LABS: #Eosinphils 0.3 thou/uL (0.0-0.7); #Monocytes 0.4 thou/uL (0.11-0.59); #Neutrophils 1.7 thou/uL (1.40-6.50); %Basophils 1.1 % (0.0-1.0); %Eosinophils 9.7 % (0.0-10.0); %Lymphocytes 14.8 % (21.0-51.0); Hemoglobin 14.6 g/dL (14.0-18.0); Mean Corpuscular HGB CONC 33.6 g/dL (32.0-36.0); Mean Corpuscular Hemoglobin 31.8 pg (27.0-31.0); Mean Corpuscular Volume 94.8 fl (78.0-98.0); Mean Platelet Volume 9.9 fL (7.4-10.4); Platelet Count 172 10x3/uL (130-400); RBC Distribution Width 13.6 % (11.5-14.5); Red Blood Cell (RBC) Count 4.59 mill/uL (4.70-6.10); White Blood Cell (WBC) Count 2.8 10x3/uL (4.8-10.8)
[2023-03-12 05:33] LABS: Anion Gap 9 mmol/L (10-20); BUN (Urea Nitrogen) 8 mg/dL (8.4-25.7); Calc. Creatinine Clearance 89 mL/min (70-130); Calcium 8.8 mg/dL (7.8-10.44); Carbon Dioxide 26 mmol/L (22-29); Chloride 101 mmol/L (98-107); Estimated GFR 108; Glucose 96 mg/dL (70-105); Potassium 3.8 mmol/L (3.5-5.1); Sodium 132 mmol/L (136-145)
[2023-03-12] MEDS ORDERED: Levothyroxine Sodium 75 MCG TAB PO SCH (06:00)
[2023-03-12] MEDS ORDERED: Aspirin 81 mg Enteric Coated Tablet PO SCH (09:00)
[2023-03-12 16:29] VITALS: BP 123/80; TEMP 97.7
== END 2023-03-12 20:43 | disposition home or self-care (01) ==
LOC: ERS 17:02 → SUATTDRO 17:02 → NEURO 18:21
PROVIDERS: ADMIT Family Medicine; ATTEND Internal Medicine
DX: R47.01 Aphasia (principal); M48.02 Spinal stenosis, cervical region; I25.10 Atherosclerotic heart disease of native coronary artery without angina pectoris; G45.9 Transient cerebral ischemic attack, unspecified; J44.9 Chronic obstructive pulmonary disease, unspecified; I10 Essential (primary) hypertension; F14.10 Cocaine abuse, uncomplicated; E03.9 Hypothyroidism, unspecified; Z79.890 Hormone replacement therapy; Z79.899 Other long term (current) drug therapy; F17.200 Nicotine dependence, unspecified, uncomplicated
CPT/HCPCS: 36415; 36416; 70450; 70496; 70498; 70551; 71045; 80048; 80053; 80306; 80307; 81001; 82550; 83605; 83690; 84443; 84484; 85025; 85610; 85730; 93005; 96374; 96376; G0378; J1650; J2270; Q9967

== ENCOUNTER 2023-06-09 08:23 | Emergency (ER) | payer MEDICAID, OTHER ==
[2023-06-09 09:15] LABS: #Eosinphils 0.6 thou/uL (0.0-0.7); #Monocytes 0.4 thou/uL (0.11-0.59); #Neutrophils 3.9 thou/uL (1.40-6.50); %Basophils 0.7 % (0.0-1.0); %Eosinophils 10.3 % (0.0-10.0); %Lymphocytes 8.4 % (21.0-51.0); %Neutrophils 72.2 % (42.0-75.0); Hematocrit 39.5 % (42.0-52.0); Hemoglobin 13.8 g/dL (14.0-18.0); Mean Corpuscular HGB CONC 34.9 g/dL (32.0-36.0); Mean Corpuscular Hemoglobin 31.7 pg (27.0-31.0); Mean Corpuscular Volume 90.8 fl (78.0-98.0); Mean Platelet Volume 9.5 fL (7.4-10.4); Platelet Count 231 10x3/uL (130-400); Red Blood Cell (RBC) Count 4.35 mill/uL (4.70-6.10); White Blood Cell (WBC) Count 5.4 10x3/uL (4.8-10.8)
[2023-06-09 10:09] LABS: Albumin 4.4 g/dL (3.5-5.0); Calcium 9.7 mg/dL (7.8-10.44); Chloride 95 mmol/L (98-107); Potassium 4.7 mmol/L (3.5-5.1); Sodium 131 mmol/L (136-145)
[2023-06-09 10:13] LABS: Glucose 87 mg/dL (70-105)
[2023-06-09 10:14] LABS: Globulin 2.8 g/dL (2.4-3.5); Protein, Total 7.2 g/dL (6.0-8.3)
[2023-06-09 10:15] LABS: Bilirubin, Total 0.8 mg/dL (0.2-1.2); Carbon Dioxide 27 mmol/L (22-29)
[2023-06-09 10:16] LABS: Alkaline Phosphatase 51 U/L (40-110)
[2023-06-09 10:17] LABS: Calc. Creatinine Clearance 0 mL/min (70-130); Estimated GFR 101
[2023-06-09 10:18] LABS: BUN (Urea Nitrogen) 13 mg/dL (8.4-25.7)
[2023-06-09 10:19] LABS: ALT (SGPT) 13 U/L (8-55); AST (SGOT) 17 U/L (5-34)
[2023-06-09] MEDS ORDERED: Morphine 4 MG/ML VIAL ONE (10:22)
[2023-06-09] MEDS ORDERED: Dexamethasone 10 MG/ML VIAL ONE (10:22)
[2023-06-09 10:29] LABS: Anion Gap 14 mmol/L (10-20)
[2023-06-09] MEDS ORDERED: EPINEPHrine 1 MG/ML AMP ONE ×2 (10:51→11:23)
[2023-06-09] MEDS ORDERED: diphenhydrAMINE 50 MG/ML VIAL ONE (10:54)
[2023-06-09] MEDS ORDERED: Famotidine/PF 20 mg/2ml Vial ONE (10:57)
[2023-06-09] MEDS ORDERED: Rocuronium Bromide 10 MG/ML (10ML VIAL) ONE (11:44)
[2023-06-09] MEDS ORDERED: Propofol 1,000 MG/100 ML VIAL IV ONE (12:02)
[2023-06-09 12:16] LABS: Actual Bicarbonate (HCO3a) 22.6 mEq/L (22-28); Analyzer IN Cardio ER; Base Excess (BEa) -3.6 mEq/L (-2.0 to +3.0); CO2 Tension 44.6 mmHg (35.0-45.0); Calcium, Ionized (arterial) 1.16 mmol/L (1.12-1.30); Carboxyhemoglobin (COHb) 2.6 gm% (0.0-3.0); Hematocrit-ABG 45 % (42.0-52.0); Hemoglobin (Hb) 15.2 g/dL (14.0-18.0); O2 Tension (PaO2), arterial 191.6 mmHg (> 80.0); Potassium - ABG Lab 3.85 mmol/L (3.70-5.30); pH, Arterial 7.322 (7.35-7.45)
[2023-06-09 12:23] LABS: Puncture Site RRA
[2023-06-09] MEDS ORDERED: fentaNYL 50 mcg/mL 1 mL Vial ONE ×2 (13:13→14:11)
[2023-06-09 13:21] LABS: Bacteria/HPF None Seen HPF (None Seen); Bilirubin Negative (Negative); Blood, Urine Trace (Negative); CAUTI Indications for Culture Urological Procedure; Clarity Clear (Clear); Glucose, Urine (Dipstick) Normal (Negative); Ketone, Urine 10 mg/dL (Negative); Leukocyte Negative Leu/uL (Negative); Nitrite Negative (Negative); Protein, Urine (Dipstick) 20 mg/dL (Neg-Trace); RBC/HPF 0-3 HPF (0-3); Specific Gravity, Urine 1.037 (1.002-1.036); Squamous Epithelial None Seen HPF (0-3); Urobilinogen Normal mg/dL (Less than 2); WBC/HPF 0-3 HPF (0-3); pH, Urine 5.5 (5.0-9.0)
[2023-06-09 13:26] LABS: Urine Culture Reflex Yes Yes
[2023-06-09] MEDS ORDERED: Midazolam HCl 2 mg/2 ml Vial ONE (14:27)
[2023-06-09 15:49] LABS: SARS-CoV-2 NAA Rapid Test Not Detected (NotDetected)
[2023-06-09] MEDS ORDERED: Iopamidol-370 76% 500 ML MDV (1 ML CHARGE) ONE (15:51)
== END 2023-06-09 14:41 | disposition short-term general hospital (02) ==
LOC: ERS 08:23
DX: T78.3XXA Angioneurotic edema, initial encounter (principal); E78.5 Hyperlipidemia, unspecified; I10 Essential (primary) hypertension; Z79.899 Other long term (current) drug therapy
CPT/HCPCS: 31500; 36415; 36600; 51702; 70491; 71045; 80053; 81001; 82805; 83605; 85025; 86140; 87040; 87086; 96372; 96374; 96375; 96376; J0171; J1100; J1200; J2250; J2270; J2704; J3010; Q9967; S0028

== ENCOUNTER 2023-10-19 15:11 | Inpatient (IN) | payer OTHER ==
[2023-10-19 15:46] LABS: #Eosinphils 0.1 thou/uL (0.0-0.7); #Monocytes 0.5 thou/uL (0.11-0.59); %Basophils 0.7 % (0.0-1.0); %Eosinophils 1.7 % (0.0-10.0); %Lymphocytes 13.8 % (21.0-51.0); %Monocytes 11.7 % (0.0-10.0); %Neutrophils 71.9 % (42.0-75.0); Hematocrit 35.7 % (42.0-52.0); Hemoglobin 11.7 g/dL (14.0-18.0); Mean Corpuscular HGB CONC 32.8 g/dL (32.0-36.0); Mean Corpuscular Hemoglobin 30.8 pg (27.0-31.0); Mean Corpuscular Volume 93.9 fl (78.0-98.0); Mean Platelet Volume 9.8 fL (7.4-10.4); Platelet Count 169 10x3/uL (130-400); White Blood Cell (WBC) Count 4.2 10x3/uL (4.8-10.8)
[2023-10-19 16:03] LABS: ALT (SGPT) 27 U/L (8-55); AST (SGOT) 31 U/L (5-34); Albumin 4.2 g/dL (3.5-5.0); Alkaline Phosphatase 46 U/L (40-110); Anion Gap 14 mmol/L (10-20); BUN (Urea Nitrogen) 15 mg/dL (8.4-25.7); Bilirubin, Total 0.2 mg/dL (0.2-1.2); Calc. Creatinine Clearance 0 mL/min (70-130); Calcium 8.5 mg/dL (7.8-10.44); Carbon Dioxide 25 mmol/L (22-29); Chloride 98 mmol/L (98-107); Estimated GFR 99; Glucose 99 mg/dL (70-105); Potassium 3.7 mmol/L (3.5-5.1); Protein, Total 7.2 g/dL (6.0-8.3); Sodium 133 mmol/L (136-145)
[2023-10-19 16:05] LABS: Troponin I Less than 0.010 ng/mL (< 0.028)
[2023-10-19 16:42] LABS: SARS-CoV-2 NAA Rapid Test DETECTED (NotDetected)
[2023-10-19] MEDS ORDERED: LevoFLOXacin 750 mg/D5W 150 ml Premix Bag ONE (17:05)
[2023-10-19] MEDS ORDERED: Cefepime 2 GM VIAL ONE (17:05)
[2023-10-19] MEDS ORDERED: Sodium Chloride 0.9% 100 ML ONE (17:05)
[2023-10-19] MEDS ORDERED: Vancomycin HCl 750 MG in Sodium Chloride 0.9% 250 ML 250 ML IVPB SCH (17:15)
[2023-10-19] MEDS ORDERED: Acetaminophen 650 MG Suppository PR PRN (19:09)
[2023-10-19] MEDS ORDERED: Ondansetron PF 4 MG/2 ML Vial IVP PRN (19:09)
[2023-10-19] MEDS ORDERED: Albuterol 200 PUFF (6.7GM INHALER) INH PRN ×2 (19:13→22:19)
[2023-10-19] MEDS ORDERED: Benzonatate 100 MG CAP PO PRN (19:13)
[2023-10-19] MEDS ORDERED: predniSONE 20 MG TAB PO SCH (19:15)
[2023-10-19] MEDS ORDERED: Ipratropium/Albuterol 3 ML NEB NEB PRN (19:17)
[2023-10-19 21:35] VITALS: BMI 19.8
[2023-10-19] MEDS: Mirtazapine 15 MG TAB PO SCH (22:12)
[2023-10-19] MEDS: Atorvastatin Calcium 40 MG TAB PO SCH (22:12)
[2023-10-19] MEDS: Doxycycline 100 MG in Sodium Chloride 0.9% 100 ML IVPB SCH (22:13)
[2023-10-19] MEDS ORDERED: Ipratropium/Albuterol 3 ML NEB NEB SCH (22:30)
[2023-10-19 23:46] LABS: Troponin I Less than 0.010 ng/mL (< 0.028)
[2023-10-20] MEDS: Albuterol 200 PUFF (6.7GM INHALER) INH SCH ×7 (00:57→23:16)
[2023-10-20] MEDS: Acetaminophen 325 MG TAB PO PRN ×2 (00:57→09:08)
[2023-10-20] MEDS: Melatonin 3 MG TAB PO PRN ×2 (00:58→20:10)
[2023-10-20] MEDS: Levothyroxine Sodium 125 MCG TAB PO SCH (05:45)
[2023-10-20] MEDS ORDERED: predniSONE 20 MG TAB PO SCH (08:00)
[2023-10-20] MEDS: Enoxaparin 40 MG (0.4 mL) SYRINGE SC SCH (08:16)
[2023-10-20] MEDS: Doxycycline 100 MG in Sodium Chloride 0.9% 100 ML IVPB SCH ×2 (08:17→20:09)
[2023-10-20] MEDS: Aspirin 81 mg Enteric Coated Tablet PO SCH (08:17)
[2023-10-20 08:40] LABS: #Monocytes 0.1 thou/uL (0.11-0.59); #Neutrophils 2.4 thou/uL (1.40-6.50); %Basophils 0.4 % (0.0-1.0); %Lymphocytes 11.2 % (21.0-51.0); %Monocytes 3.2 % (0.0-10.0); %Neutrophils 84.8 % (42.0-75.0); Hematocrit 37.4 % (42.0-52.0); Hemoglobin 11.7 g/dL (14.0-18.0); Mean Corpuscular HGB CONC 31.3 g/dL (32.0-36.0); Mean Corpuscular Hemoglobin 31.1 pg (27.0-31.0); Mean Platelet Volume 9.9 fL (7.4-10.4); Platelet Count 139 10x3/uL (130-400); RBC Distribution Width 13.1 % (11.5-14.5); Red Blood Cell (RBC) Count 3.76 mill/uL (4.70-6.10); White Blood Cell (WBC) Count 2.8 10x3/uL (4.8-10.8)
[2023-10-20 08:57] LABS: Mean Corpuscular Volume 99.5 fl (78.0-98.0)
[2023-10-20] MEDS ORDERED: FLU VACC QS2023-24(6MOS UP)/PF 60 MCG/0.5 ML SYRINGE IM ONE (09:00)
[2023-10-20 09:41] LABS: Anion Gap 19 mmol/L (10-20); BUN (Urea Nitrogen) 12 mg/dL (8.4-25.7); Calc. Creatinine Clearance 89 mL/min (70-130); Calcium 8.3 mg/dL (7.8-10.44); Carbon Dioxide 17 mmol/L (22-29); Chloride 105 mmol/L (98-107); Estimated GFR 104; Glucose 147 mg/dL (70-105); Potassium 5.9 mmol/L (3.5-5.1); Sodium 135 mmol/L (136-145)
[2023-10-20 09:42] LABS: Troponin I Less than 0.010 ng/mL (< 0.028)
[2023-10-20] MEDS ORDERED: Sodium Polystyrene Sulfonate 15 GM (60 mL) BOT PO SCH (13:15)
[2023-10-20] MEDS: Ondansetron ODT 4 MG TAB PO PRN (14:08)
[2023-10-20] MEDS: Mometasone 200 MCG/Formoterol 5 MCG 120 PUFF INHALER INH SCH ×2 (14:10→18:31)
[2023-10-20] MEDS ORDERED: Calcium Carbonate 500 MG ChewTAB PO PRN (15:32)
[2023-10-20] MEDS ORDERED: Mag-Al Plus 1200/1200/120 MG (30 mL) UDCUP PO PRN (15:32)
[2023-10-20] MEDS: Mirtazapine 15 MG TAB PO SCH (20:09)
[2023-10-20] MEDS: Atorvastatin Calcium 40 MG TAB PO SCH (20:10)
[2023-10-21] MEDS: Albuterol 200 PUFF (6.7GM INHALER) INH SCH ×6 (02:37→23:01)
[2023-10-21] MEDS: Levothyroxine Sodium 125 MCG TAB PO SCH (05:55)
[2023-10-21] MEDS: Mometasone 200 MCG/Formoterol 5 MCG 120 PUFF INHALER INH SCH ×2 (05:59→17:46)
[2023-10-21] MEDS: Doxycycline 100 MG in Sodium Chloride 0.9% 100 ML IVPB SCH ×2 (08:28→20:46)
[2023-10-21] MEDS: Ascorbic Acid 500 mg Chewable Tablet PO SCH (08:29)
[2023-10-21] MEDS: Enoxaparin 40 MG (0.4 mL) SYRINGE SC SCH ×2 (08:29→08:34)
[2023-10-21] MEDS: Zinc Sulfate 220 MG CAP PO SCH (08:29)
[2023-10-21] MEDS: Cholecalciferol (Vitamin D3) 400 UNITS TAB PO SCH (08:29)
[2023-10-21] MEDS: Aspirin 81 mg Enteric Coated Tablet PO SCH (08:29)
[2023-10-21] MEDS: Dexamethasone 4 mg/ml Vial SLOW IVP SCH (08:29)
[2023-10-21] MEDS ORDERED: Famotidine 20 MG TAB PO SCH (09:00)
[2023-10-21 11:17] LABS: #Monocytes 0.2 thou/uL (0.11-0.59); #Neutrophils 3.6 thou/uL (1.40-6.50); %Basophils 0.2 % (0.0-1.0); %Lymphocytes 9.4 % (21.0-51.0); %Monocytes 4.7 % (0.0-10.0); %Neutrophils 85.5 % (42.0-75.0); Hematocrit 33.8 % (42.0-52.0); Hemoglobin 10.7 g/dL (14.0-18.0); Mean Corpuscular HGB CONC 31.7 g/dL (32.0-36.0); Mean Corpuscular Hemoglobin 30.1 pg (27.0-31.0); Mean Corpuscular Volume 95.2 fl (78.0-98.0); Platelet Count 159 10x3/uL (130-400); RBC Distribution Width 12.8 % (11.5-14.5); Red Blood Cell (RBC) Count 3.55 mill/uL (4.70-6.10); White Blood Cell (WBC) Count 4.2 10x3/uL (4.8-10.8)
[2023-10-21 11:44] LABS: ALT (SGPT) 22 U/L (8-55); AST (SGOT) 24 U/L (5-34); Albumin 3.4 g/dL (3.5-5.0); Alkaline Phosphatase 39 U/L (40-110); Anion Gap 9 mmol/L (10-20); BUN (Urea Nitrogen) 14 mg/dL (8.4-25.7); Bilirubin, Total Less than 0.2 mg/dL (0.2-1.2); Calc. Creatinine Clearance 92 mL/min (70-130); Calcium 8.3 mg/dL (7.8-10.44); Carbon Dioxide 27 mmol/L (22-29); Chloride 105 mmol/L (98-107); Estimated GFR 105; Globulin 2.6 g/dL (2.4-3.5); Glucose 157 mg/dL (70-105); Potassium 3.5 mmol/L (3.5-5.1); Sodium 137 mmol/L (136-145)
[2023-10-21] MEDS: Atorvastatin Calcium 40 MG TAB PO SCH (20:46)
[2023-10-21] MEDS: Melatonin 3 MG TAB PO PRN (20:46)
[2023-10-21] MEDS: Mirtazapine 15 MG TAB PO SCH (20:46)
[2023-10-22] MEDS: Albuterol 200 PUFF (6.7GM INHALER) INH SCH ×6 (03:08→22:59)
[2023-10-22] MEDS: Acetaminophen 325 MG TAB PO PRN (04:43)
[2023-10-22 05:20] LABS: #Monocytes 0.3 thou/uL (0.11-0.59); #Neutrophils 1.9 thou/uL (1.40-6.50); %Basophils 0.4 % (0.0-1.0); %Lymphocytes 18.1 % (21.0-51.0); %Monocytes 9.3 % (0.0-10.0); %Neutrophils 71.8 % (42.0-75.0); Hematocrit 34.1 % (42.0-52.0); Mean Corpuscular HGB CONC 32.3 g/dL (32.0-36.0); Mean Corpuscular Hemoglobin 30.1 pg (27.0-31.0); Mean Corpuscular Volume 93.4 fl (78.0-98.0); Mean Platelet Volume 10.2 fL (7.4-10.4); Platelet Count 168 10x3/uL (130-400); RBC Distribution Width 12.8 % (11.5-14.5); Red Blood Cell (RBC) Count 3.65 mill/uL (4.70-6.10); White Blood Cell (WBC) Count 2.7 10x3/uL (4.8-10.8)
[2023-10-22] MEDS: Levothyroxine Sodium 125 MCG TAB PO SCH (05:34)
[2023-10-22] MEDS: Mometasone 200 MCG/Formoterol 5 MCG 120 PUFF INHALER INH SCH ×2 (05:38→17:39)
[2023-10-22 05:48] LABS: ALT (SGPT) 19 U/L (8-55); AST (SGOT) 19 U/L (5-34); Albumin 3.7 g/dL (3.5-5.0); Alkaline Phosphatase 39 U/L (40-110); Anion Gap 9 mmol/L (10-20); BUN (Urea Nitrogen) 11 mg/dL (8.4-25.7); Bilirubin, Total Less than 0.2 mg/dL (0.2-1.2); CRP (Inflammatory) 1.48 mg/dL (= or < 0.5); Calc. Creatinine Clearance 89 mL/min (70-130); Calcium 8.6 mg/dL (7.8-10.44); Carbon Dioxide 31 mmol/L (22-29); Chloride 101 mmol/L (98-107); Estimated GFR 104; Globulin 2.6 g/dL (2.4-3.5); Glucose 89 mg/dL (70-105); Potassium 3.6 mmol/L (3.5-5.1); Protein, Total 6.3 g/dL (6.0-8.3); Sodium 137 mmol/L (136-145)
[2023-10-22] MEDS: Doxycycline 100 MG in Sodium Chloride 0.9% 100 ML IVPB SCH ×2 (09:39→21:13)
[2023-10-22] MEDS: Ascorbic Acid 500 mg Chewable Tablet PO SCH (09:39)
[2023-10-22] MEDS: Enoxaparin 40 MG (0.4 mL) SYRINGE SC SCH (09:40)
[2023-10-22] MEDS: Zinc Sulfate 220 MG CAP PO SCH (09:40)
[2023-10-22] MEDS: Dexamethasone 4 mg/ml Vial SLOW IVP SCH (09:40)
[2023-10-22] MEDS: Aspirin 81 mg Enteric Coated Tablet PO SCH (09:40)
[2023-10-22] MEDS: Cholecalciferol (Vitamin D3) 400 UNITS TAB PO SCH (09:40)
[2023-10-22] MEDS: Atorvastatin Calcium 40 MG TAB PO SCH (21:12)
[2023-10-22] MEDS: Melatonin 3 MG TAB PO PRN (21:13)
[2023-10-22] MEDS: Mirtazapine 15 MG TAB PO SCH (21:13)
[2023-10-22] MEDS: Ondansetron ODT 4 MG TAB PO PRN (23:29)
[2023-10-23] MEDS: Albuterol 200 PUFF (6.7GM INHALER) INH SCH ×6 (03:01→20:47)
[2023-10-23 05:28] LABS: Hematocrit 35.6 % (42.0-52.0); Hemoglobin 11.4 g/dL (14.0-18.0); Manual Diff?? YES; Mean Corpuscular Hemoglobin 29.8 pg (27.0-31.0); Mean Corpuscular Volume 93.2 fl (78.0-98.0); Mean Platelet Volume 10.2 fL (7.4-10.4); Platelet Count 163 10x3/uL (130-400); RBC Distribution Width 12.8 % (11.5-14.5); Red Blood Cell (RBC) Count 3.82 mill/uL (4.70-6.10); White Blood Cell (WBC) Count 1.8 10x3/uL (4.8-10.8)
[2023-10-23 05:47] LABS: Delete Auto Diff?? YES
[2023-10-23] MEDS: Mometasone 200 MCG/Formoterol 5 MCG 120 PUFF INHALER INH SCH ×2 (06:00→18:21)
[2023-10-23] MEDS: Levothyroxine Sodium 125 MCG TAB PO SCH (06:00)
[2023-10-23 06:14] LABS: Band 6 % (5-11); CellaVision Operator ID lab.abc; Large Platelets 9.8 % (0-5); Lymphocytes 22 % (21-51); Monocytes 23 % (0-10); Neutrophil 45 % (42-75); Platelet Adequacy Comment Platelets Normal; RBC Morphology Within Normal Limits; Reactive Lymphocytes 5 % (0-10); Smudge Cells 13.7 %; Total Cell Count 102
[2023-10-23 06:25] LABS: ALT (SGPT) 15 U/L (8-55); AST (SGOT) 18 U/L (5-34); Albumin 3.6 g/dL (3.5-5.0); Alkaline Phosphatase 42 U/L (40-110); Anion Gap 10 mmol/L (10-20); BUN (Urea Nitrogen) 12 mg/dL (8.4-25.7); Bilirubin, Total Less than 0.2 mg/dL (0.2-1.2); CRP (Inflammatory) 2.05 mg/dL (= or < 0.5); Calc. Creatinine Clearance 90 mL/min (70-130); Calcium 8.5 mg/dL (7.8-10.44); Carbon Dioxide 30 mmol/L (22-29); Chloride 101 mmol/L (98-107); Estimated GFR 104; Globulin 2.7 g/dL (2.4-3.5); Glucose 111 mg/dL (70-105); Potassium 3.9 mmol/L (3.5-5.1); Protein, Total 6.3 g/dL (6.0-8.3); Sodium 137 mmol/L (136-145)
[2023-10-23] MEDS: Dexamethasone 4 mg/ml Vial SLOW IVP SCH (07:45)
[2023-10-23] MEDS: Doxycycline 100 MG in Sodium Chloride 0.9% 100 ML IVPB SCH ×2 (07:45→20:40)
[2023-10-23] MEDS: Aspirin 81 mg Enteric Coated Tablet PO SCH (07:45)
[2023-10-23] MEDS: Ascorbic Acid 500 mg Chewable Tablet PO SCH (07:45)
[2023-10-23] MEDS: Cholecalciferol (Vitamin D3) 400 UNITS TAB PO SCH (07:45)
[2023-10-23] MEDS: Zinc Sulfate 220 MG CAP PO SCH (07:45)
[2023-10-23] MEDS: Enoxaparin 40 MG (0.4 mL) SYRINGE SC SCH ×2 (07:45→11:38)
[2023-10-23] MEDS: Melatonin 3 MG TAB PO PRN (20:41)
[2023-10-23] MEDS: Acetaminophen 325 MG TAB PO PRN (20:41)
[2023-10-23] MEDS: Mirtazapine 15 MG TAB PO SCH (20:41)
[2023-10-23] MEDS: Atorvastatin Calcium 40 MG TAB PO SCH (20:41)
[2023-10-24] MEDS: Albuterol 200 PUFF (6.7GM INHALER) INH SCH ×4 (01:25→15:04)
[2023-10-24 05:14] LABS: Hematocrit 36.2 % (42.0-52.0); Hemoglobin 11.9 g/dL (14.0-18.0); Manual Diff?? YES; Mean Corpuscular HGB CONC 32.9 g/dL (32.0-36.0); Mean Corpuscular Hemoglobin 30.6 pg (27.0-31.0); Mean Corpuscular Volume 93.1 fl (78.0-98.0); Mean Platelet Volume 10.5 fL (7.4-10.4); Platelet Count 171 10x3/uL (130-400); RBC Distribution Width 12.6 % (11.5-14.5); Red Blood Cell (RBC) Count 3.89 mill/uL (4.70-6.10); White Blood Cell (WBC) Count 1.9 10x3/uL (4.8-10.8)
[2023-10-24 05:17] LABS: Delete Auto Diff?? YES
[2023-10-24] MEDS: Levothyroxine Sodium 125 MCG TAB PO SCH (05:34)
[2023-10-24] MEDS: Mometasone 200 MCG/Formoterol 5 MCG 120 PUFF INHALER INH SCH (05:35)
[2023-10-24 05:40] LABS: ALT (SGPT) 16 U/L (8-55); AST (SGOT) 18 U/L (5-34); Albumin 3.6 g/dL (3.5-5.0); Alkaline Phosphatase 41 U/L (40-110); Anion Gap 10 mmol/L (10-20); BUN (Urea Nitrogen) 14 mg/dL (8.4-25.7); Bilirubin, Total Less than 0.2 mg/dL (0.2-1.2); Calc. Creatinine Clearance 104 mL/min (70-130); Calcium 8.7 mg/dL (7.8-10.44); Carbon Dioxide 32 mmol/L (22-29); Chloride 101 mmol/L (98-107); Estimated GFR 109; Globulin 2.7 g/dL (2.4-3.5); Glucose 99 mg/dL (70-105); Potassium 3.7 mmol/L (3.5-5.1); Protein, Total 6.3 g/dL (6.0-8.3); Sodium 139 mmol/L (136-145)
[2023-10-24 05:49] LABS: Band 13 % (5-11); CellaVision Operator ID LAB.GE; Lymphocytes 23 % (21-51); Metamyelocyte 1 % (0-0); Monocytes 11 % (0-10); Neutrophil 44 % (42-75); Platelet Adequacy Comment Platelets Normal; Polychromasia SLIGHT = 2-3 cells HPF (0-2); Reactive Lymphocytes 8 % (0-10); Total Cell Count 100
[2023-10-24] MEDS: Dexamethasone 4 mg/ml Vial SLOW IVP SCH (07:46)
[2023-10-24] MEDS: Doxycycline 100 MG in Sodium Chloride 0.9% 100 ML IVPB SCH (07:46)
[2023-10-24] MEDS: Enoxaparin 40 MG (0.4 mL) SYRINGE SC SCH (07:47)
[2023-10-24] MEDS: Zinc Sulfate 220 MG CAP PO SCH (07:47)
[2023-10-24] MEDS: Aspirin 81 mg Enteric Coated Tablet PO SCH (07:47)
[2023-10-24] MEDS: Cholecalciferol (Vitamin D3) 400 UNITS TAB PO SCH (07:47)
[2023-10-24] MEDS: Ascorbic Acid 500 mg Chewable Tablet PO SCH (07:47)
[2023-10-24 12:48] VITALS: BP 143/84; TEMP 98.4
== END 2023-10-24 15:57 | DRG 178 ==
LOC: ERS 15:11 → SUATTDRO 15:11 → T4-B 18:54 → T4-A 21:03 → OBSVTOIN 10-20 13:04
PROVIDERS: ADMIT Family Medicine; ATTEND Family Medicine
PROC: 3E0333Z Introduction of Anti-inflammatory into Peripheral Vein, Percutaneous Approach (ICD-10-PCS; principal; 2023-10-21)
PROC: 8E0ZXY6 Isolation (ICD-10-PCS; 2023-10-21)
DX: U07.1 COVID-19 (principal); J44.1 Chronic obstructive pulmonary disease with (acute) exacerbation; J98.11 Atelectasis; F03.90 Unspecified dementia, unspecified severity, without behavioral disturbance, psychotic disturbance, mood disturbance, and anxiety; R53.81 Other malaise; I95.9 Hypotension, unspecified; F41.9 Anxiety disorder, unspecified; F10.90 Alcohol use, unspecified, uncomplicated; F17.210 Nicotine dependence, cigarettes, uncomplicated; E78.5 Hyperlipidemia, unspecified; K21.9 Gastro-esophageal reflux disease without esophagitis; E03.9 Hypothyroidism, unspecified; Z88.8 Allergy status to other drugs, medicaments and biological substances; Z79.890 Hormone replacement therapy; Z79.899 Other long term (current) drug therapy; Z79.82 Long term (current) use of aspirin; Z98.890 Other specified postprocedural states; Z98.49 Cataract extraction status, unspecified eye
CPT/HCPCS: 36415; 71045; 80048; 80053; 83605; 83615; 84145; 84484; 85025; 86140; 87040; 93005; 94760; 96361; 96365; 96367; 96372; 96375; 96376; G0378; J0692; J1100; J1650; J1956; J3370; J3490; J7050; J7512; Q0162

== ENCOUNTER 2024-07-16 12:38 | Emergency (ER) | payer OTHER ==
[2024-07-16 13:41] LABS: #Basophils 0.06 10x3/uL (0.0-0.2); %Basophils 1.2 % (0.0-1.0); %Eosinophils 8.1 % (0.0-10.0); %Lymphocytes 7.1 % (21.0-51.0); %Monocytes 8.3 % (0.0-10.0); %Neutrophils 75.1 % (42.0-75.0); Hematocrit 41.8 % (42.0-52.0); Hemoglobin 13.5 g/dL (14.0-18.0); Mean Corpuscular HGB CONC 32.3 g/dL (32.0-36.0); Mean Corpuscular Hemoglobin 29.3 pg (27.0-31.0); Mean Corpuscular Volume 90.9 fL (78.0-98.0); Mean Platelet Volume 9.5 fL (7.4-10.4); Platelet Count 259 10x3/uL (130-400); RBC Distribution Width 14.4 % (11.5-14.5)
[2024-07-16 13:57] LABS: ALT (SGPT) 20 U/L (8-55); AST (SGOT) 20 U/L (5-34); Albumin 4.4 g/dL (3.4-4.8); Alkaline Phosphatase 58 U/L (40-110); Anion Gap 12 mmol/L (10-20); BUN (Urea Nitrogen) 9 mg/dL (8.4-25.7); Bilirubin, Total 0.4 mg/dL (0.2-1.2); Calc. Creatinine Clearance 0 mL/min (70-130); Calcium 9.6 mg/dL (7.8-10.44); Carbon Dioxide 30 mmol/L (23-31); Chloride 100 mmol/L (98-107); Estimated GFR 99; Globulin 3.5 g/dL (2.4-3.5); Glucose 107 mg/dL (80-115); Potassium 3.7 mmol/L (3.5-5.1); Protein, Total 7.9 g/dL (5.8-8.1); Sodium 138 mmol/L (136-145)
== END 2024-07-16 23:10 ==
LOC: ERS 12:38
DX: K59.00 Constipation, unspecified (principal); F17.210 Nicotine dependence, cigarettes, uncomplicated; I25.10 Atherosclerotic heart disease of native coronary artery without angina pectoris; I10 Essential (primary) hypertension; J44.9 Chronic obstructive pulmonary disease, unspecified
CPT/HCPCS: 36415; 80053; 85025; 99284